=== PATIENT | male | born 1965 | race Caucasian/White ===

== ENCOUNTER 2023-08-14 16:06 | Inpatient (IN) | payer BC, SELFPAY ==
--- NOTE | 2023-08-14 | ECG_ITS ---
Test Reason : TACHYCARDIA Blood Pressure : / mmHG Vent. Rate : 141 BPM Atrial Rate : 344 BPM P-R Int : 000 ms QRS Dur : 088 ms QT Int : 312 ms P-R-T Axes : 000 -05 218 degrees QTc Int : 477 ms Atrial flutter with variable A-V block with premature ventricular or aberrantly conducted complexes ST & T wave abnormality, consider lateral ischemia Abnormal ECG No previous ECGs available Referred By: Generic ED Physician Electronically Signed By:EARLENE BOOKER MD
--- NOTE | ~2023-08-14 | NM_ITS ---
BILIARY TRACT IMAGING STUDY CLINICAL INDICATION: Gallbladder edema, question acalculous cholecystitis. PROCEDURE: Scintillation camera images were obtained over the abdomen for an observation of 60 minutes following the intravenous administration of 5.0 millicuries technetium 99m Mebrofenin. COMPARISON: No previous biliary scan is available for comparison. Abdominal ultrasound and CT of the abdomen and pelvis, both dated 08/14/2023 are available for comparison.. FINDINGS: There is good concentration of activity in the liver by 5 minutes post injection. Biliary activity is well visualized by 10 minutes, and there is good visualization of small bowel activity by 30 minutes. The gallbladder is well visualized by 20 minutes. At the end of the study there is good clearance of activity from the liver which is only faintly visualized in the gallbladder and diffuse small bowel activity are well visualized. NM/NM hepatobiliary wo pharm IMPRESSION: Normal biliary scan. Visualization of the gallbladder is evidence of a patent cystic duct and strong evidence against the diagnosis of acute cholecystitis. The common bile duct is patent. Liver function appears normal.
--- NOTE | ~2023-08-14 | US_ITS ---
EXAMINATION: US ABDOMEN LIMITED CLINICAL INFORMATION: Right upper quadrant pain. COMPARISON: CT abdomen/pelvis earlier today. TECHNIQUE: Real-time imaging of the gallbladder. FINDINGS: No evidence of cholelithiasis. Mild diffuse gallbladder wall thickening with trace amount of pericholecystic free fluid at the fundus. Positive Sargent's sign. Mildly dilated CBD, best visualized on CT from earlier same day. US/US abdomen limited IMPRESSION: 1. Mild diffuse gallbladder wall thickening with trace amount of pericholecystic free fluid and positive Sargent's sign. These findings are concerning for acute acalculus cholecystitis in the appropriate clinical setting. Alternatively, the gallbladder wall thickening may be related with hepatocellular disease such as hepatitis and the pericholecystic free fluid could potentially be secondary to trace amount of ascites, as free fluid is also noted surrounding the liver and in the right paracolic gutter on CT from earlier today. Clinical correlation is recommended. 2. Mildly dilated CBD, best visualized on CT from earlier same day. Recommend correlation with liver/biliary function tests and if indicated for evaluation with MRCP.
--- NOTE | ~2023-08-14 | CT_ITS ---
EXAMINATION: CT ABDOMEN AND PELVIS WITH CONTRAST CLINICAL INFORMATION: Right upper quadrant/epigastric pain. COMPARISON: None available. TECHNIQUE: Multidetector volumetric images were obtained from the superior aspect of the liver through the pubic symphysis following administration 85 mL of Omnipaque 350 intravenous contrast. Sagittal and coronal reformatted images were obtained on the technologist's workstation. Oral contrast: No This CT examination was performed using dose optimization techniques as appropriate, variously including the following: *Automated exposure control *Adjustment of mA and/or kV according to patient size (this includes techniques or standardized protocols for targeted exams where dose is matched to indication/reason for exam; i.e. extremities or head) *Use of iterative reconstruction technique DLP: 1021 mGy-cm FINDINGS: LUNG BASES: Moderate size bilateral pleural effusions. LIVER, GALLBLADDER, AND BILIARY TREE: Subtle heterogeneous enhancement of the liver parenchyma more noticeable in the periphery of the right inferior lobe (3:31). Trace superior perihepatic free fluid. Mild diffuse gallbladder wall thickening with trace pericholecystic fatty haziness best seen on the coronal images, although evaluation is limited due to motion. No evidence of calcified cholelithiasis. Mild indeterminate dilatation of the common bile duct measuring up to 11 mm. No significant intrahepatic biliary ductal dilatation. No calcified choledocholithiasis. PANCREAS: Unremarkable. SPLEEN: Too small to characterize nonaggressive appearing hypodensity in the inferior spleen (3:35). ADRENAL GLANDS: Unremarkable. KIDNEYS AND URETERS: The kidneys are normal in size, shape, and attenuation. A few bilateral too small to characterize cortical hypodensities favoring to represent simple cysts for which no imaging follow-up is recommended. No hydronephrosis, hydroureter, or calculi seen. Asymmetric free fluid along the anterior right pararenal space and right paracolic gutter. BLADDER: Unremarkable. GASTROINTESTINAL TRACT: The stomach and small bowel are nondilated. Cecum at the level of the right upper quadrant, no evidence of volvulus. The appendix is not identified. Mild colonic diverticulosis without significant pericolonic fat stranding or free fluid. No evidence of bowel obstruction. ABDOMINAL WALL: Small fat-containing right-sided inguinal hernia. Mild fat stranding in the umbilical region. LYMPH NODES: No lymphadenopathy. VASCULAR: Atherosclerotic disease. Normal caliber abdominal aorta. Question small recanalized umbilical vein. PELVIC VISCERA: Unremarkable. OSSEOUS STRUCTURES: No acute or aggressive appearing osseous findings. Degenerative changes of the spine. CT/CT abdomen pelvis w IV con IMPRESSION: 1. Gallbladder wall thickening with trace pericholecystic fatty haziness, although evaluation is limited due to motion. No evidence of calcified cholelithiasis. Correlate clinically for acute acalculus cholecystitis, consider further evaluation with right upper quadrant ultrasound as clinically deemed appropriate. 2. Mild indeterminate dilatation of the common bile duct; further evaluation with MRCP if clinically warranted. 3. Subtle heterogeneous attenuation liver parenchyma, nonspecific could be related with hepatic steatosis or hepatitis, recommend correlation with liver function tests. 4. Indeterminate small volume of asymmetric free fluid in the anterior right pararenal space and right paracolic gutter with trace amount of free fluid surrounding the upper liver, possibly related with ascites. Suggestion of recanalized small paraumbilical vein but could be seen with portal hypertension. 5. Moderate bilateral pleural effusions. 6. Mild fat stranding in the umbilical region, correlate with physical examination.
--- NOTE | ~2023-08-14 | XR_ITS ---
EXAMINATION: XR CHEST CLINICAL INFORMATION: Shortness of breath. COMPARISON: None available. TECHNIQUE: AP view of the chest was obtained. FINDINGS: Limited examination secondary to patient body habitus and rotation. Prominent cardiomediastinal silhouette. Diffuse interstitial thickening. No focal consolidation, pleural effusion or pneumothorax. No acute osseous findings. Visualized upper abdomen is within normal limits. XR/XR chest 1V IMPRESSION: Findings suggesting pulmonary edema versus atypical infectious/inflammatory process. Prominent cardiomediastinal silhouette.
[2023-08-14 16:20] VITALS: BP 180/117; PULSE 129; RESP 22; TEMP 36.2; O2SAT 93; BMI 43.0
[2023-08-14 17:07] VITALS: BP 168/106; PULSE 137; RESP 25; O2SAT 95
--- NOTE | 2023-08-14 17:12 | ED.GENADULT ---
HPI - General Adult General Chief complaint: General Medical Stated complaint: sob,abd pain ? contstipation, started to heart med Time Seen by Provider: 08/14/23 16:41 Source: patient and family Mode of arrival: ambulatory History of Present Illness HPI narrative: 58-year-old male with known atrial fibrillation and on Coumadin for coagulation, underwent cardioversion on Wednesday of this week that was unsuccessful and was supposed to start amiodarone but drove from [place] up to [place] and did not start the medication until yesterday and although was supposed to take 3 pills, he only took 2. Patient states that he has begun to feel more short of breath, increased abdominal bloating and has taken 2 doses of laxatives and states his last bowel movement was this morning but patient appears very uncomfortable. He denies chest pain. Patient states that he also did not take his morning Lopressor. 1700: evaluated Related Data Home Medications Medication Instructions Recorded Confirmed amiodarone 400 mg tablet mg PO 08/14/23 atorvastatin 10 mg tablet 10 mg PO DAILY 08/14/23 08/14/23 fluticasone propionate 110 2 puff inhalation BID 08/14/23 08/14/23 mcg/actuation HFA aerosol inhaler metoprolol succinate 50 mg 50 mg PO DAILY 08/14/23 08/14/23 tablet,extended release 24 hr pantoprazole 40 mg tablet,delayed 40 mg PO DAILY 08/14/23 08/14/23 release ramipril 10 mg capsule 10 mg PO DAILY 08/14/23 08/14/23 warfarin 4 mg tablet 4 mg PO 08/14/23 08/14/23 Allergies Allergy/AdvReac Type Severity Reaction Status Date / Time No Known Allergies Allergy Verified 08/14/23 16:27 Review of Systems Review of Systems: Pertinent positives and negatives as stated in HPI [facility] Past Medical History Source: nursing notes reviewed Social History Social History Smoked in Last 30 Days: No Use of substances other than those prescribed or required for medical reasons: No Advance Directives: Yes Advance Directives Information Provided: No Advance Directives on File: No Physical Exam ED Vital Signs: Vital Signs - 24 hr 08/14/23 16:20 08/14/23 17:07 08/14/23 17:20 Temperature 97.1 F Pulse Rate 129 H 137 H Pulse Rate [Automated] 125 H Respiratory Rate 22 H 25 H Blood Pressure 180/117 H 168/106 H Pulse Oximetry 93 95 Oxygen Delivery Method Room Air Room Air 08/14/23 17:48 08/14/23 18:42 08/14/23 21:18 Temperature 97.8 F Pulse Rate 118 H 124 H 98 Pulse Rate [Automated] Respiratory Rate 22 H 25 H 26 H Blood Pressure 146/110 H 131/101 H 127/89 Pulse Oximetry 97 95 95 Oxygen Delivery Method Room Air Room Air Room Air BMI result Body Mass Index 43.0 VITAL SIGNS: Reviewed. GENERAL: Elevated BMI, Well developed, well nourished, in no acute distress. HEAD: Normocephalic/atraumatic EYES: PERRLA, EOMI EARS: Ext canals without abnormality NOSE: Nares patent bilateral OROPHARYNX: no oral lesions noted, posterior pharynx clear NECK: Supple, no adenopathy LUNGS: Normal breath sounds. No adventitious sounds or accessory muscle use. SpO2<93> CARDIOVASCULAR: Regular rate and rhythm without noted murmurs, no JVD or lower extremity edema. ABDOMEN: Soft, non-tender, non-distended with bowel sounds. MUSCULOSKELETAL: No tenderness, deformities, or effusions noted on gross inspection. EXTREMITIES: No cyanosis, clubbing or edema. SKIN: Inspection of the skin reveals no rashes NEUROLOGIC: Alert and oriented x 4. Strength and sensation to light touch were grossly intact x 4. Medications Administered Discontinued Medications Generic Name Dose Route Start Last Admin Trade Name Freq PRN Reason Stop Dose Admin Diltiazem HCl 10 mg 08/14/23 18:54 08/14/23 19:33 Diltiazem Hcl 50 Mg/10 Ml Vial IVPUSH 08/14/23 18:55 10 mg STAT STA Administration Furosemide 60 mg 08/14/23 18:10 08/14/23 18:41 Furosemide 100 Mg/10 Ml Vial IVPUSH 08/14/23 18:11 60 mg ONCE ONE Administration Protocol Iohexol 100 ml 08/14/23 21:07 08/14/23 21:07 Iohexol 350 Mg/Ml 100 Ml Infus..Btl IV 08/14/23 21:08 85 ml ONCE ONE Administration Metoprolol Tartrate 5 mg 08/14/23 17:11 08/14/23 17:19 Metoprolol Tartrate 5 Mg/5 Ml Vial IVPUSH 08/14/23 17:12 5 mg ONCE ONE Administration Metoprolol Tartrate 5 mg 08/14/23 17:37 08/14/23 17:47 Metoprolol Tartrate 5 Mg/5 Ml Vial IVPUSH 08/14/23 17:38 5 mg ONCE ONE Administration Medical Decision Making Medical Decision Making [facility] Narrative: 1700: 58-year-old male who presents with evidence of atrial flutter with RVR, patient was given 5 of Lopressor and will continue to rule out evidence of anemia, electrolyte abnormalities. I reviewed all investigations and hematologic indices demonstrate a leukocytosis with a left shift but patient is noted to be afebrile and suspect this is a stress leukocytosis, there is no anemia or thrombocytopenia. INR is therapeutic at 2.8. Chemistry indices are negative for WING and there are no electrolyte derangements, serial troponins are flat, however there is a noted elevation total bilirubin as well as mild elevation of transaminases. There is no elevation of alkaline phosphatase which argues against choledocholithiasis. BNP is 363 which is consistent with patient's atrial fibrillation with RVR. CT scan demonstrates gallbladder wall thickening with trace pericholecystic haziness, some mild free fluid in the anterior pararenal space. 2220: I suspect infection, antibiotics ordered. I also ordered ultrasound right upper quadrant. 2247: I discussed case with inpatient hospitalist who accepts admission. Differential Diagnosis Differential Diagnoses: The differential diagnosis associated with the presentation includes Please see the discussion above Admission/Observation Consideration of admission/observation: Escalation of care including admission/observation considered Please see the discussion above Consult Healthcare Provider Management of the patient was discussed with: Hospitalist Please see the discussion above Lab Data [facility] Lab Attestation statement: I reviewed the patient's lab results. Please see the discussion above 08/14/23 17:13 08/14/23 17:13 Labs: Lab Results 08/14/23 08/14/23 08/14/23 Range/Units 17:13 19:39 20:30 WBC 11.9 H (4.8-10.8) X10*3/uL RBC 5.47 (4.60-5.80) X10*6/uL Hgb 16.9 (14.0-18.0) g/dl Hct 50.2 (42.0-52.0) % MCV 91.8 (80.0-98.0) fL MCH 30.9 (27.0-33.0) pg MCHC 33.7 (31.0-36.0) g/dl RDW 14.1 (11.0-16.0) % Plt Count 225 (160-400) X10*3/uL MPV 10.6 (9.4-12.4) fL Immature Gran % (Auto) 0.3 (0.0-0.4) % Neut % (Auto) 79.0 H (45-73) % Lymph % (Auto) 10.1 L (20-40) % Bertie % (Auto) 9.1 (2-11) % Eos % (Auto) 1.1 (0-4) % Baso % (Auto) 0.4 (0-2) % Lymph # (Auto) 1.2 (1.2-4.9) X10*3/uL Bertie # (Auto) 1.1 (0.1-1.2) X10*3/uL Eos # (Auto) 0.1 (0.0-0.4) X10*3/uL Baso # (Auto) 0.1 (0.0-0.2) X10*3/uL Abs Immat Gran (auto) 0.04 H (0.00-0.03) X10*3/uL Absolute Neuts (auto) 9.4 H (2.0-8.3) x10*3/uL Absolute Nucleated RBC 0.000 (0.0-0.012) X10*3/uL Nucleated RBC % (auto) 0.0 (0.0-0.2) /100WBC PT 33.7 H (11.1-13.3) SEC INR 2.8 H (0.9-1.1) APTT 39.9 H (26.0-36.4) SEC Sodium 139 (135-145) mmol/L Potassium 4.2 (3.3-5.1) mmol/L Chloride 106 (96-108) mmol/L Carbon Dioxide 23 (22-29) mmol/L Anion Gap 14 (12-20) BUN 14 (9-16) mg/dL Creatinine 0.87 (0.5-1.4) mg/dL Estim Creat Clear Calc 126.8 Estimated GFR > 60 Random Glucose 102 (60-115) mg/dL Calcium 9.3 (8.4-10.2) mg/dL Total Bilirubin 2.1 H (0.0-1.0) mg/dL Direct Bilirubin 0.7 H (0.0-0.5) mg/dL AST 44 H (5-37) U/L ALT 73 H (0-40) U/L Alkaline Phosphatase 65 (39-117) U/L Troponin I High Sens 7.1 (<3.5-35.0) ng/L B-Natriuretic Peptide 363 H (<100) pg/mL Total Protein 7.6 (6.5-8.0) g/dL Albumin 4.4 (3.5-5.0) g/dL Lipase 14 (8-78) U/L Urine Color Yellow Urine Appearance Clear Urine pH 5.5 (5.0-9.0) Ur Specific [place] <= 1.005 (1.005-1.025) Urine Protein Negative (Neg-Trace) mg/dL Urine Glucose (UA) Negative (Negative) mg/dL Urine Ketones Negative (Negative) mg/dL Urine Blood Negative (Negative) Urine Nitrite Negative (Negative) Ur Leukocyte Esterase Negative (Negative) COVID-19 (SANTO) Negative (Negative) COVID-19 Clin Com See Note Influenza Type A (WILMA) (Negative) Influenza Type B (WILMA) (Negative) Influenza A & B Note 08/14/23 Range/Units 20:31 WBC (4.8-10.8) X10*3/uL RBC (4.60-5.80) X10*6/uL Hgb (14.0-18.0) g/dl Hct (42.0-52.0) % MCV (80.0-98.0) fL MCH (27.0-33.0) pg MCHC (31.0-36.0) g/dl RDW (11.0-16.0) % Plt Count (160-400) X10*3/uL MPV (9.4-12.4) fL Immature Gran % (Auto) (0.0-0.4) % Neut % (Auto) (45-73) % Lymph % (Auto) (20-40) % Bertie % (Auto) (2-11) % Eos % (Auto) (0-4) % Baso % (Auto) (0-2) % Lymph # (Auto) (1.2-4.9) X10*3/uL Bertie # (Auto) (0.1-1.2) X10*3/uL Eos # (Auto) (0.0-0.4) X10*3/uL Baso # (Auto) (0.0-0.2) X10*3/uL Abs Immat Gran (auto) (0.00-0.03) X10*3/uL Absolute Neuts (auto) (2.0-8.3) x10*3/uL Absolute Nucleated RBC (0.0-0.012) X10*3/uL Nucleated RBC % (auto) (0.0-0.2) /100WBC PT (11.1-13.3) SEC INR (0.9-1.1) APTT (26.0-36.4) SEC Sodium (135-145) mmol/L Potassium (3.3-5.1) mmol/L Chloride (96-108) mmol/L Carbon Dioxide (22-29) mmol/L Anion Gap (12-20) BUN (9-16) mg/dL Creatinine (0.5-1.4) mg/dL Estim Creat Clear Calc Estimated GFR Random Glucose (60-115) mg/dL Calcium (8.4-10.2) mg/dL Total Bilirubin (0.0-1.0) mg/dL Direct Bilirubin (0.0-0.5) mg/dL AST (5-37) U/L ALT (0-40) U/L Alkaline Phosphatase (39-117) U/L Troponin I High Sens 8.8 (<3.5-35.0) ng/L B-Natriuretic Peptide (<100) pg/mL Total Protein (6.5-8.0) g/dL Albumin (3.5-5.0) g/dL Lipase (8-78) U/L Urine Color Urine Appearance Urine pH (5.0-9.0) Ur Specific [place] (1.005-1.025) Urine Protein (Neg-Trace) mg/dL Urine Glucose (UA) (Negative) mg/dL Urine Ketones (Negative) mg/dL Urine Blood (Negative) Urine Nitrite (Negative) Ur Leukocyte Esterase (Negative) COVID-19 (SANTO) (Negative) COVID-19 Clin Com Influenza Type A (WILMA) Negative (Negative) Influenza Type B (WILMA) Negative (Negative) Influenza A & B Note See Note Independent Interpretation I performed an independent interpretation of an: EKG Interpretation: Atrial flutter with RVR, HR-141, QRS/QTC is within normal limits. Radiology Impression Discussion of test interpretation with radiology: I have reviewed the radiologist's reading. Radiologist Impression: Please see the discussion above Chronic Conditions Patient?s care impacted by: Hypertension and Other Atrial fibrillation on chronic anticoagulation. Critical Care Time Critical Care Time Critical Care Time: Yes Total Critical Care Time: 90 Attestation: I personally attest to this time spent taking care of the patient. Discharge Plan Discharge Clinical Impression: Atrial fibrillation with RVR, CHF exacerbation, Abdominal pain Patient Disposition: Admitted As Inpatient
[2023-08-14] MEDS: Metoprolol Tartrate 5 MG/5 ML VIAL IVPUSH ×2 (17:19→17:47)
[2023-08-14 17:20] VITALS: PULSE 125
[2023-08-14 17:24] LABS: MANUAL DIFF FLAG NO
--- NOTE | 2023-08-14 17:25 | PC.NURSE ---
patient presents with afib, rate 120s -145s. patient states he has not taken his medication due to possible constipation. patient states he has abd pain which is making him sob. patient denies any chest pain or palpitations. patient medicated per DEC IV in the left ac
[2023-08-14 17:26] LABS: Basophils Absolute Auto 0.1 X10*3/uL (0.0-0.2); Basophils Percent Auto 0.4 % (0-2); Eosinophils Absolute Auto 0.1 X10*3/uL (0.0-0.4); Eosinophils Percent Auto 1.1 % (0-4); Hematocrit 50.2 % (42.0-52.0); Hemoglobin 16.9 g/dl (14.0-18.0); Imm Gran Abs Auto 0.04 X10*3/uL (0.00-0.03); Imm Gran Pct Auto 0.3 % (0.0-0.4); Lymphocytes Absolute Auto 1.2 X10*3/uL (1.2-4.9); Lymphocytes Percent Auto 10.1 % (20-40); Mean Corpuscular HGB Conc 33.7 g/dl (31.0-36.0); Mean Corpuscular Hemoglobin 30.9 pg (27.0-33.0); Mean Corpuscular Volume 91.8 fL (80.0-98.0); Mean Platelet Volume 10.6 fL (9.4-12.4); Monocytes Absolute Auto 1.1 X10*3/uL (0.1-1.2); Monocytes Percent Auto 9.1 % (2-11); Neutrophils Absolute Auto 9.4 x10*3/uL (2.0-8.3); Platelet Count 225 X10*3/uL (160-400); Red Blood Count 5.47 X10*6/uL (4.60-5.80); Red Cell Distribution Width 14.1 % (11.0-16.0); White Blood Count 11.9 X10*3/uL (4.8-10.8)
[2023-08-14 17:32] LABS: INTERNATIONAL NORM RATIO 2.8 (0.9-1.1); Prothrombin Time 33.7 SEC (11.1-13.3)
[2023-08-14 17:35] LABS: Partial Thromboplastin Time 39.9 SEC (26.0-36.4)
[2023-08-14 17:40] LABS: Alanine Aminotransferase 73 U/L (0-40); Albumin Level 4.4 g/dL (3.5-5.0); Alkaline Phosphatase 65 U/L (39-117); Anion Gap 14 (12-20); Aspartate Amino Transferase 44 U/L (5-37); Bilirubin Direct 0.7 mg/dL (0.0-0.5); Bilirubin Total 2.1 mg/dL (0.0-1.0); Blood Urea Nitrogen 14 mg/dL (9-16); Calcium 9.3 mg/dL (8.4-10.2); Carbon Dioxide 23 mmol/L (22-29); Chloride 106 mmol/L (96-108); Creatinine Clr Calc Pharmacy 126.8; Estimated Glomerular Filt Rate > 60; Glucose Random 102 mg/dL (60-115); Lipase 14 U/L (8-78); Potassium 4.2 mmol/L (3.3-5.1); Sodium 139 mmol/L (135-145); Total Protein 7.6 g/dL (6.5-8.0)
[2023-08-14 17:46] LABS: B Type Natriuretic Peptide 363 pg/mL (<100)
[2023-08-14 17:48] VITALS: BP 146/110; PULSE 118; RESP 22; O2SAT 97
[2023-08-14 18:12] LABS: Troponin-I High Sensitivity 7.1 ng/L (<3.5-35.0)
[2023-08-14] MEDS: Furosemide 100 MG/10 ML VIAL 60 MG IVPUSH (18:41)
[2023-08-14 18:42] VITALS: BP 131/101; PULSE 124; RESP 25; O2SAT 95
[2023-08-14] MEDS: dilTIAZem HCL 50 MG/10 ML VIAL 10 MG IVPUSH (19:33)
[2023-08-14 19:52] LABS: Appearance Urine Clear; Color Urine Yellow; Glucose Urine UA Negative (Negative); Leukocyte Esterase Urine Negative (Negative); Nitrite Urine Negative (Negative); PH 5.5 (5.0-9.0); Specific Gravity - Urine <= 1.005 (1.005-1.025); Urine Blood Negative (Negative); Urine Ketones Negative (Negative); Urine Protein Negative (Neg-Trace)
--- NOTE | 2023-08-14 20:48 | PC.NURSE ---
pt feeling less chest pressure, now able to lay mostly flat with no SOB. stomach feels less distended. pt continues to urinate into urinal at bedside. output being measured. urine clear, pale yellow.
[2023-08-14 20:57] LABS: IDNOW Serial# BCCEAD1C; Influenza A Negative (Negative); Influenza B2 Negative (Negative)
[2023-08-14 20:57] LABS: COVID-19 Test Negative (Negative); IDNOW Serial# 08D9AD1C
[2023-08-14 21:00] LABS: Troponin-I High Sensitivity 8.8 ng/L (<3.5-35.0)
[2023-08-14] MEDS: iohexoL 350 MG/ML 100 ML INFUS..BTL IV (21:07)
[2023-08-14 21:18] VITALS: BP 127/89; PULSE 98; RESP 26; TEMP 36.6; O2SAT 95
--- NOTE | 2023-08-14 22:10 | PC.NURSE ---
pt laying in bed left lateral position. O2 dropped to 75% on RA. pt reports using CPAP at bedtime. HOB elevated slightly, O2 at 86%. pt wanted to remain in that position to sleep, pt placed on 3L NC, O2 at 93%.
--- NOTE | 2023-08-14 22:47 | PC.NURSE ---
pt off unit with U/S, abx not yet given
--- NOTE | 2023-08-14 22:52 | P.HPHOSP_ITS ---
History of Present Illness Date of Service: 08/14/23 Chief Complaint: Dyspnea ; abdominal swelling This is a 58-year-old male with 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 Patient states he is from [place] and underwent cardioversion on Wednesday. It was unsuccessful and patient was initiated on amiodarone. Patient states he only took 2 pills as it made him constipated. He is visiting his sister in [facility]. Patient does report progressive dyspnea, worse with exertion. Also complains of orthopnea. Does have bilateral lower extremity looks swelling and abdominal wall swelling. He states he does have abdominal discomfort, right-sided, nonradiating. No fever, chills, nausea, vomiting. No palpitations or changes in urinary or bowel habits. In the emergency department, patient with pulmonary edema and BNP was found to be elevated. Also requiring supplemental oxygen and found to be in AFib with RVR. Abdominal imaging with diffuse gallbladder wall thickening, positive Sargent signs and dilated CBD with elevated liver enzymes Review of Systems 2 Constitutional: Constitutional: Reports fatigue and Reports weakness Cardiovascular: Cardiovascular: Reports dyspnea on exertion and Reports orthopnea Respiratory: Respiratory: Reports dyspnea on exertion Gastrointestinal: Gastrointestinal: Reports abdominal pain Genitourinary: Genitourinary: Reports no additional male genitourinary complaints Musculoskeletal: Musculoskeletal: Reports no additional musculoskeletal complaints Neurologic: Reports weakness Endocrine: Endocrine: Reports fatigue [facility] Medical History DVT (deep venous thrombosis) Essential hypertension Atrial fibrillation with RVR Pertinent family history: No family history of early CAD Social History Patient Tobacco Use Status: Never used Tobacco Smoked in Last 30 Days: No Use of substances other than those prescribed or required for medical reasons: No Advance Directives: Yes Advance Directives Information Provided: No Advance Directives on File: No Nutrition Risks: No Nutritional Risk Meds Allergies Allergy/AdvReac Type Severity Reaction Status Date / Time No Known Allergies Allergy Verified 08/14/23 16:27 Home Medications Medication Instructions Recorded Confirmed Last Taken Type amiodarone 400 mg tablet mg PO 08/14/23 08/13/23 History atorvastatin 10 mg tablet 10 mg PO DAILY 08/14/23 08/14/23 08/13/23 History fluticasone propionate 110 2 puff inhalation BID 08/14/23 08/14/23 08/13/23 History mcg/actuation HFA aerosol inhaler metoprolol succinate 50 mg 50 mg PO DAILY 08/14/23 08/14/23 08/13/23 History tablet,extended release 24 hr pantoprazole 40 mg tablet,delayed 40 mg PO DAILY 08/14/23 08/14/23 08/13/23 History release ramipril 10 mg capsule 10 mg PO DAILY 08/14/23 08/14/23 08/13/23 History warfarin 4 mg tablet 4 mg PO 08/14/23 08/14/23 08/13/23 History Physical Exam 2 Vital Signs and Narrative: Vital Signs: Last Vital Signs Temp 97.8 F 08/14/23 21:18 Pulse 98 08/14/23 21:18 Resp 26 H 08/14/23 21:18 BP 127/89 08/14/23 21:18 Pulse Ox 95 08/14/23 21:18 O2 Del Method Room Air 08/14/23 21:18 BMI result Body Mass Index 43.0 Middle-aged male lying in bed in mild distress on supplemental oxygen Neck supple Irregularly irregular, S1-S2 heard Bilateral crackles without wheezing Abdomen soft nontender, no guarding, no rigidity Patient is awake, alert and oriented to self, place, time and person ; no focal motor deficit Psych: Normal mood Bilateral pedal edema Results Labs 08/14/23 17:13 08/14/23 17:13 Labs: Laboratory Results - last 24 hr 08/14/23 08/14/23 08/14/23 17:13 19:39 20:30 MCV 91.8 MCH 30.9 MCHC 33.7 RDW 14.1 Plt Count 225 MPV 10.6 Immature Gran % (Auto) 0.3 Neut % (Auto) 79.0 H Lymph % (Auto) 10.1 L Worth % (Auto) 9.1 Eos % (Auto) 1.1 Baso % (Auto) 0.4 Lymph # (Auto) 1.2 Worth # (Auto) 1.1 Eos # (Auto) 0.1 Baso # (Auto) 0.1 Abs Immat Gran (auto) 0.04 H Absolute Neuts (auto) 9.4 H Absolute Nucleated RBC 0.000 Nucleated RBC % (auto) 0.0 PT 33.7 H INR 2.8 H APTT 39.9 H Anion Gap 14 Estim Creat Clear Calc 126.8 Estimated GFR > 60 Random Glucose 102 Calcium 9.3 Total Bilirubin 2.1 H Direct Bilirubin 0.7 H AST 44 H ALT 73 H Alkaline Phosphatase 65 B-Natriuretic Peptide 363 H Total Protein 7.6 Albumin 4.4 Lipase 14 Urine Color Yellow Urine Appearance Clear Urine pH 5.5 Ur Specific [place] <= 1.005 Urine Protein Negative Urine Glucose (UA) Negative Urine Ketones Negative Urine Blood Negative Urine Nitrite Negative Ur Leukocyte Esterase Negative COVID-19 (SANTO) Negative COVID-19 Clin Com See Note Influenza Type A (WILMA) Influenza Type B (WILMA) Influenza A & B Note 08/14/23 20:31 MCV MCH MCHC RDW Plt Count MPV Immature Gran % (Auto) Neut % (Auto) Lymph % (Auto) [place] % (Auto) Eos % (Auto) Baso % (Auto) Lymph # (Auto) Worth # (Auto) Eos # (Auto) Baso # (Auto) Abs Immat Gran (auto) Absolute Neuts (auto) Absolute Nucleated RBC Nucleated RBC % (auto) PT INR APTT Anion Gap Estim Creat Clear Calc Estimated GFR Random Glucose Calcium Total Bilirubin Direct Bilirubin AST ALT Alkaline Phosphatase B-Natriuretic Peptide Total Protein Albumin Lipase Urine Color Urine Appearance Urine pH Ur Specific [place] Urine Protein Urine Glucose (UA) Urine Ketones Urine Blood Urine Nitrite Ur Leukocyte Esterase COVID-19 (SANTO) COVID-19 Clin Com Influenza Type A (WILMA) Negative Influenza Type B (WILMA) Negative Influenza A & B Note See Note Imaging Radiologist's Impressions: Impressions Chest X-Ray 08/14/23 18:52 IMPRESSION: Findings suggesting pulmonary edema versus atypical infectious/inflammatory process. Prominent cardiomediastinal silhouette. Abdomen/Pelvis CT 08/14/23 21:06 IMPRESSION: 1. Gallbladder wall thickening with trace pericholecystic fatty haziness, although evaluation is limited due to motion. No evidence of calcified cholelithiasis. Correlate clinically for acute acalculus cholecystitis, consider further evaluation with right upper quadrant ultrasound as clinically deemed appropriate. 2. Mild indeterminate dilatation of the common bile duct; further evaluation with MRCP if clinically warranted. 3. Subtle heterogeneous attenuation liver parenchyma, nonspecific could be related with hepatic steatosis or hepatitis, recommend correlation with liver function tests. 4. Indeterminate small volume of asymmetric free fluid in the anterior right pararenal space and right paracolic gutter with trace amount of free fluid surrounding the upper liver, possibly related with ascites. Suggestion of recanalized small paraumbilical vein but could be seen with portal hypertension. 5. Moderate bilateral pleural effusions. 6. Mild fat stranding in the umbilical region, correlate with physical examination. Assessment and Plan (1) Atrial fibrillation with RVR: Status: Acute (2) CHF exacerbation: Status: Acute (3) Elevated liver enzymes: Status: Acute Plan This is a 58-year-old male with 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 #. Acute hypoxemic respiratory failure secondary to compensated congestive heart failure, unspecified EF: Will admit patient with supplemental oxygen. Initiating IV diuresis. Strict I's and O's. Low-salt diet. Consulting Cardiology and obtaining echocardiogram. #. Atrial fibrillation with RVR: Initiated IV diltiazem drip in the ER. On Coumadin. Consulted Cardiology as above. Obtaining TSH #. Elevated liver enzymes: Imaging with diffuse gallbladder wall thickening and positive Sargent sign. ?acute cholecystitis. Consulting general surgery. Also noted mildly dilated CBD, obtaining MRCP. Initiating empiric IV antibiotics #. SOUMYA: Continue CPAP at bedtime #. History of DVT: On Coumadin #. Mixed hyperlipidemia: On statin Med rec pending Cardiac diet DVT prophylaxis: On Coumadin Admit as inpatient and will require two night minimum hospital stay for supplemental oxygen, IV diuresis, IV diltiazem, IV antibiotics (as above), which is not possible in a lesser acute setting. Specialist consult pending Quality Stroke Does the patient have a stroke diagnosis?: No VTE Prior VTE?: No VTE Risk Level:: Medical - moderate - high VTE Device Contraindication: Treatment Not Indicated VTE Drug Contraindication: N/A - Med Ordered
--- NOTE | 2023-08-14 23:12 | PC.NURSE ---
Med Rec completed.
[2023-08-14] MEDS: cefTRIAXone sodium 1 GM in 0.9 % Sodium Chloride 50 ML IV (23:26)
--- NOTE | 2023-08-14 23:41 | PC.NURSE ---
pt refused PO tylenol. pt denies pain and does not have a fever. did not want to take medication.
[2023-08-15] VITALS (10 sets, daily range): BP systolic 127–151; BP diastolic 67–104; PULSE 91–134; RESP 16–25; TEMP 36.1–36.8; O2SAT 94–96; BMI 40.7
[2023-08-15] MEDS: 0.9 % Sodium Chloride Flush 3 ML SYRINGE IVFLUSH ×2 (00:07→21:08)
[2023-08-15] MEDS: Piperacillin Sodium/Tazobactam 4.5 GM in 0.9 % Sodium Chloride 100 ML IV ×4 (00:30→18:11)
[2023-08-15 00:57] LABS: Thyroid Stimulating Hormone 1.38 uIU/mL (0.32-4.0)
[2023-08-15] MEDS: dilTIAZem HCL 125 MG in 0.9 % Sodium Chloride 100 ML 10 MG IVCONT (01:05)
[2023-08-15] MEDS: Acetaminophen 325 MG TABLET 650 MG PO (01:25)
--- NOTE | 2023-08-15 03:13 | PC.NURSE ---
pt resting comfortably in bed, at bedside. pt using home CPAP, 02 ranges from 88-96 HR dropped to 79. ranges from 79-100. MD Berry aware. cardizem drip stopped.
--- NOTE | 2023-08-15 03:41 | PC.NURSE ---
pt c/o leg cramping. pt also concerned that he missed his PM medications. MD Jamal nava
[2023-08-15 06:19] LABS: MANUAL DIFF FLAG NO
[2023-08-15 06:27] LABS: Basophils Absolute Auto 0.1 X10*3/uL (0.0-0.2); Basophils Percent Auto 0.5 % (0-2); Eosinophils Absolute Auto 0.2 X10*3/uL (0.0-0.4); Eosinophils Percent Auto 1.4 % (0-4); Hemoglobin 15.7 g/dl (14.0-18.0); Imm Gran Abs Auto 0.04 X10*3/uL (0.00-0.03); Imm Gran Pct Auto 0.4 % (0.0-0.4); Lymphocytes Absolute Auto 1.6 X10*3/uL (1.2-4.9); Lymphocytes Percent Auto 14.4 % (20-40); Mean Corpuscular HGB Conc 34.1 g/dl (31.0-36.0); Mean Corpuscular Hemoglobin 31.5 pg (27.0-33.0); Mean Corpuscular Volume 92.2 fL (80.0-98.0); Mean Platelet Volume 10.7 fL (9.4-12.4); Monocytes Absolute Auto 1.2 X10*3/uL (0.1-1.2); Monocytes Percent Auto 11.2 % (2-11); Neutrophils Absolute Auto 7.8 x10*3/uL (2.0-8.3); Neutrophils Percent Auto 72.1 % (45-73); Platelet Count 200 X10*3/uL (160-400); Red Blood Count 4.99 X10*6/uL (4.60-5.80); Red Cell Distribution Width 14.1 % (11.0-16.0); White Blood Count 10.8 X10*3/uL (4.8-10.8)
[2023-08-15 06:34] LABS: Anion Gap 11 (12-20); Blood Urea Nitrogen 11 mg/dL (9-16); Calcium 8.7 mg/dL (8.4-10.2); Carbon Dioxide 29 mmol/L (22-29); Chloride 103 mmol/L (96-108); Creatinine Clr Calc Pharmacy 125.4; Estimated Glomerular Filt Rate > 60; Glucose Random 94 mg/dL (60-115); Potassium 3.8 mmol/L (3.3-5.1); Sodium 139 mmol/L (135-145)
--- NOTE | 2023-08-15 07:46 | PC.NURSE ---
ASSUMED CARE OF THIS PT THIS MORNING. MEDICATED PER EMR, ON THIRD DOSE OF IV ABX. REMAINS IN AFIB LOW 110S AT REST, INCREASING TO 130S WITH ANY EXERTION, ALSO BECOMING DYSPNEIC, LS CLEAR THROUGHOUT. DENIES CP AT THIS TIME, ABDOMINAL PRESSURE AND DISCOMFORT HAS IMPROVED. HAS NOT RECEIVED HOME RXS, REVIEWED WITH HIM ONCE AGAIN THERE HAVE BEEN MANY RECENT CHANGES. HOSPITALIST CONTACTED FOR ORDERS. CARDIZEM GTT REMAINS PAUSED AT THIS TIME. PT AWARE OF PLAN FOR CARE.
--- NOTE | 2023-08-15 07:49 | P.CONGS_ITS ---
History of Present Illness Consult details Consult date: 08/15/23 Reason for consult: abdominal pain Narrative: The patient is a 58-year-old gentleman anticoagulated with Coumadin for history of DVT on Coumadin, atrial fibrillation, mixed hyperlipidemia, essential hypertension, SOUMYA on CPAP who is admitted to the hospitalist service and I was asked to evaluate the patient given artie cholecystic fluid in concern for acalculous cholecystitis. The patient reports recent diagnosis of atrial fibrillation and heart failure. He is visiting his sister from [place] and noted that after a 4 L diuresis, his abdominal pain has resolved. At the time of evaluation earlier this morning, the patient notes that he is feeling better and denies any abdominal pain. Review of Systems 2 Review of Systems: Yes all other systems are reviewed and are negative Constitutional: Constitutional: Reports as per [facility] Past Medical History Medical History DVT (deep venous thrombosis) Essential hypertension Atrial fibrillation with RVR Social History Social History Patient Tobacco Use Status: Never used Tobacco Smoked in Last 30 Days: No Use of substances other than those prescribed or required for medical reasons: No Advance Directives: Yes Advance Directives Information Provided: No Advance Directives on File: No Nutrition Risks: No Nutritional Risk Meds Allergies Allergy/AdvReac Type Severity Reaction Status Date / Time No Known Allergies Allergy Verified 08/14/23 16:27 Active Medications: Current Medications Acetaminophen (Acetaminophen 325 Mg Tablet) 650 mg PO Q6H PRN PRN Reason: Pain, Mild (Pain Scale 1-3) Last Admin: 08/15/23 01:25 Dose: 650 mg Furosemide (Furosemide 40 Mg/4 Ml Vial) 40 mg IVPUSH DAILY [facility]; Protocol Diltiazem HCl 125 mg/ Sodium (Chloride) 125 mls @ 0 mls/hr IVCONT .Q0M [facility]; Protocol Last Titration: 08/15/23 03:13 Dose: 0 mg/hr, 0 mls/hr Piperacillin Sod/Tazobactam (Sod 4.5 gm/ Sodium Chloride) 100 mls @ 200 mls/hr IV Q6H [facility] Last Admin: 08/15/23 07:37 Dose: 200 mls/hr Melatonin (Melatonin 3 Mg Tablet) 6 mg PO BEDTIME PRN PRN Reason: Insomnia Ondansetron HCl (Ondansetron Hcl 4 Mg/2 Ml Vial) 4 mg IVPUSH Q8H PRN PRN Reason: Nausea and Vomiting Sodium Chloride (0.9 % Sodium Chloride Flush 3 Ml Syringe) 3 ml IVFLUSH QSHIFT [facility] Last Admin: 08/15/23 00:07 Dose: 3 ml Home Medications Medication Instructions Recorded Confirmed Last Taken Type amiodarone 400 mg tablet 400 mg PO TID 08/14/23 08/15/23 08/13/23 History atorvastatin 10 mg tablet 10 mg PO QPM 08/14/23 08/15/23 08/13/23 History fluticasone propionate 110 2 puff inhalation BID 08/14/23 08/14/23 08/13/23 History mcg/actuation HFA aerosol inhaler metoprolol succinate 50 mg 75 mg PO BEDTIME 08/14/23 08/15/23 08/13/23 History tablet,extended release 24 hr pantoprazole 40 mg tablet,delayed 40 mg PO DAILY 08/14/23 08/14/23 08/13/23 History release ramipril 10 mg capsule 20 mg PO DAILY 08/14/23 08/15/23 08/13/23 History warfarin 4 mg tablet 4 mg PO QPM 08/14/23 08/15/23 Unknown History ascorbic acid (vitamin C) 100 mg 500 mg PO DAILY 08/15/23 08/15/23 Unknown History chewable tablet calcium carbonate 500 mg calcium 500 mg PO DAILY 08/15/23 08/15/23 Unknown History (1,250 mg) chewable tablet (Calcium 500) cholecalciferol (vitamin D3) 50 100 mcg PO DAILY 08/15/23 08/15/23 Unknown History mcg (2,000 unit) capsule (Vitamin D3) coenzyme Q10 100 mg capsule (Co 100 mg PO DAILY 08/15/23 08/15/23 Unknown History Q-10) glucosamine sulf dipot 1 cap PO DAILY 08/15/23 08/15/23 Unknown History chlr,msm,chond 550 mg-C 30 mg-timmy 1 mg capsule (Glucosamine Chondroitin) multivitamin 1 tab PO DAILY 08/15/23 08/15/23 Unknown History Physical Exam 2 Vital Signs: Vital Signs: Last Vital Signs Temp 97.5 F 08/15/23 07:20 Pulse 112 H 11/12/23 07:20 Resp 22 H 08/15/23 07:20 BP 149/95 H 08/15/23 07:20 Pulse Ox 94 08/15/23 07:20 O2 Del Method Room Air 08/15/23 07:20 O2 Flow Rate 3 08/15/23 01:26 BMI result Body Mass Index 43.0 The patient is non-toxic & in good spirits NC/AT, PERRLA, EOMI Mood, affect & judgment all appear appropriate Sclera anicteric conjunctiva pink and moist Oropharynx is clear with no aphthous ulcers, Mallampati class 4, mucous membranes moist Heart is irregular, normal S1-S2 no rubs or murmurs Lungs are clear and equal anteriorly with no audible wheezing, rubs or dullness to percussion Abdomen is obese with no demonstrable hernias. No HSM, rebound, rigidity, guarding, masses or bruits are present. The patient does note that when he was 1st brought into the hospital he had abdominal pain and that is absent now that he has been diuresed. Rectal exam is deferred Skin has good turgor and is free of rashes Extremities free of cyanosis clubbing edema but symmetric hemosiderin deposition in his lower leg is present suggestive of chronic venous insufficiency Results Labs 08/15/23 06:05 08/15/23 06:05 Labs: Abnormal lab results 08/14/23 08/15/23 Range/Units 17:13 06:05 WBC 11.9 H (4.8-10.8) X10*3/uL Neut % (Auto) 79.0 H (45-73) % Lymph % (Auto) 10.1 L 14.4 L (20-40) % [place] % (Auto) 11.2 H (2-11) % Abs Immat Gran (auto) 0.04 H 0.04 H (0.00-0.03) X10*3/uL Absolute Neuts (auto) 9.4 H (2.0-8.3) x10*3/uL PT 33.7 H (11.1-13.3) SEC INR 2.8 H (0.9-1.1) APTT 39.9 H (26.0-36.4) SEC Anion Gap 11 L (12-20) Total Bilirubin 2.1 H (0.0-1.0) mg/dL Direct Bilirubin 0.7 H (0.0-0.5) mg/dL AST 44 H (5-37) U/L ALT 73 H (0-40) U/L B-Natriuretic Peptide 363 H (<100) pg/mL Short CBC 08/14/23 08/15/23 Range/Units 17:13 06:05 WBC 11.9 H 10.8 (4.8-10.8) X10*3/uL Hgb 16.9 15.7 (14.0-18.0) g/dl Hct 50.2 46.0 (42.0-52.0) % Plt Count 225 200 (160-400) X10*3/uL BMP 08/14/23 08/15/23 17:13 06:05 Sodium 139 139 Potassium 4.2 3.8 Chloride 106 103 Carbon Dioxide 23 29 BUN 14 11 Creatinine 0.87 0.88 Calcium 9.3 8.7 D Liver Function 08/14/23 Range/Units 17:13 Total Bilirubin 2.1 H (0.0-1.0) mg/dL Direct Bilirubin 0.7 H (0.0-0.5) mg/dL AST 44 H (5-37) U/L ALT 73 H (0-40) U/L Alkaline Phosphatase 65 (39-117) U/L Albumin 4.4 (3.5-5.0) g/dL Urine 08/14/23 Range/Units 19:39 Urine Color Yellow Urine Appearance Clear Urine pH 5.5 (5.0-9.0) Ur Specific [place] <= 1.005 (1.005-1.025) Urine Protein Negative (Neg-Trace) mg/dL Urine Glucose (UA) Negative (Negative) mg/dL All other labs normal. Assessment and Plan (1) Abnormal abdominal CT scan: Status: Acute (2) Elevated liver enzymes: Status: Acute (3) DVT (deep venous thrombosis): Status: Acute (4) Essential hypertension: Status: Acute (5) Atrial fibrillation with RVR: Status: Acute (6) CHF exacerbation: Status: Acute Plan Agree with current plan and workup. Await MRCP, however any right-sided heart failure can cause hepatic edema that can appear to be artie cholecystic fluid on CT or abdominal ultrasound. I have ordered a HIDA without pharmacy to be done for tomorrow since nonvisualization of the gallbladder would be consistent with acalculous cholecystitis. Would continue NPO for now and will follow. Given the interval improvement, the cut patient has question whether not his diet could be advanced and he could be discharged since he has a flight back to [place]. The safest course of action would be to continue this treatment plan given his comorbidities, but in my experience, acute acalculous cholecystitis does not typically improve with diuresis suggestive of right-sided heart failure and venous congestion of the liver contributing to the abnormal finding and subsequent interval improvement. Will follow Procedures Date of Service Date of Service: 08/15/23
--- NOTE | 2023-08-15 08:52 | PHA.MEDREC ---
Pharmacy Consult ? Medication Reconciliation Pharmacy has completed the medication reconciliation. spoke with patient to confirm medications. He started the amiodarone on wednesday and only took 2 doses, then stopped because he was experiencing side effects. He confirmed that the only inhaler he is on right now is the flovent. He reports that his metoprolol was recently increased to 75mg daily. He also confirmed that he is on 4mg every day of warfarin. He explained that he was prescribed spironolactone but never started the medication because he was feeling dehydrated and did not think it was a good idea.
[2023-08-15] MEDS: Furosemide 40 MG/4 ML VIAL IVPUSH ×2 (09:25→18:11)
[2023-08-15] MEDS: Amiodarone HCL 200 MG TABLET 400 MG PO ×3 (09:25→21:05)
[2023-08-15] MEDS: lisinopriL 40 MG TABLET PO (09:30)
--- NOTE | 2023-08-15 09:55 | HO.PM.IMPN ---
Subjective Subjective Date of Service: 08/15/23 Interval History: sob improving Physical Exam Vital Signs: Vital Signs: Last Vital Signs Temp 97.5 F 08/15/23 07:20 Pulse 112 H 08/15/23 07:20 Resp 22 H 08/15/23 07:20 BP 149/95 H 08/15/23 07:20 Pulse Ox 94 08/15/23 07:20 O2 Del Method Room Air 08/15/23 07:20 O2 Flow Rate 3 08/15/23 01:26 BMI result Body Mass Index 43.0 General: AO X 3, no acute distress Resp: CTA bilateral, no accessory muscles used CVS: S1,S2, irregular GI: soft, non tender, bloated Neuro: motor grossly intact, alert Psych: appropriate affect, appropriate insight Objective Data Active Medications Acetaminophen (Acetaminophen 325 Mg Tablet) 650 mg PO Q6H PRN PRN Reason: Pain, Mild (Pain Scale 1-3) Last Admin: 08/15/23 01:25 Dose: 650 mg Documented By: JENNIFER Amiodarone HCl (Amiodarone Hcl 200 Mg Tablet) 400 mg PO TID [facility] Last Admin: 08/15/23 09:25 Dose: 400 mg Documented By: SRAVANTHI Atorvastatin Calcium (Atorvastatin Calcium 10 Mg Tablet) 10 mg PO BEDTIME [facility] Fluticasone Propionate (Fluticasone Propionate 100 Mcg Blst.W.Dev) 2 puff INHALE RBID [facility] Furosemide (Furosemide 40 Mg/4 Ml Vial) 40 mg IVPUSH DAILY [facility]; Protocol Last Admin: 08/15/23 09:25 Dose: 40 mg Documented By: SRAVANTHI Diltiazem HCl 125 mg/ Sodium (Chloride) 125 mls @ 0 mls/hr IVCONT .Q0M [facility]; Protocol Last Titration: 08/15/23 03:13 Dose: 0 mg/hr, 0 mls/hr Documented By: JENNIFER Piperacillin Sod/Tazobactam (Sod 4.5 gm/ Sodium Chloride) 100 mls @ 200 mls/hr IV Q6H [facility] Last Infusion: 08/15/23 08:34 Dose: Infused Documented By: SRAVANTHI Lisinopril (Lisinopril 40 Mg Tablet) 40 mg PO DAILY [facility] Last Admin: 08/15/23 09:30 Dose: 40 mg Documented By: SRAVANTHI Melatonin (Melatonin 3 Mg Tablet) 6 mg PO BEDTIME PRN PRN Reason: Insomnia Metoprolol Succinate (Metoprolol Succinate Er 50 Mg Tab.Er.24h) 75 mg PO BEDTIME [facility]; Protocol Multivitamins/Vitamin C (Multivitamin Tablet) 1 tab PO DAILY [facility] Omeprazole (Omeprazole 20 Mg Capsule.Dr) 20 mg PO DAILY@0630 [facility] Ondansetron HCl (Ondansetron Hcl 4 Mg/2 Ml Vial) 4 mg IVPUSH Q8H PRN PRN Reason: Nausea and Vomiting Sodium Chloride (0.9 % Sodium Chloride Flush 3 Ml Syringe) 3 ml IVFLUSH QSHIFT [facility] Last Admin: 08/15/23 08:34 Dose: Not Given Documented By: SRAVANTHI Non-Admin Reason: See Note Vitamin D (Cholecalciferol (Vitamin D3) 25 Mcg Tablet) 100 mcg PO DAILY [facility] Warfarin Sodium (Warfarin Sodium 4 Mg Tablet) 4 mg PO DAILY@1800 [facility] Labs 08/15/23 06:05 08/15/23 06:05 Labs: Laboratory Results - last 24 hr 08/14/23 08/14/23 08/14/23 17:13 19:39 20:30 MCV 91.8 MCH 30.9 MCHC 33.7 RDW 14.1 Plt Count 225 MPV 10.6 Immature Gran % (Auto) 0.3 Neut % (Auto) 79.0 H Lymph % (Auto) 10.1 L [place] % (Auto) 9.1 Eos % (Auto) 1.1 Baso % (Auto) 0.4 Lymph # (Auto) 1.2 [place] # (Auto) 1.1 Eos # (Auto) 0.1 Baso # (Auto) 0.1 Abs Immat Gran (auto) 0.04 H Absolute Neuts (auto) 9.4 H Absolute Nucleated RBC 0.000 Nucleated RBC % (auto) 0.0 PT 33.7 H INR 2.8 H APTT 39.9 H Anion Gap 14 Estim Creat Clear Calc 126.8 Estimated GFR > 60 Random Glucose 102 Calcium 9.3 Total Bilirubin 2.1 H Direct Bilirubin 0.7 H AST 44 H ALT 73 H Alkaline Phosphatase 65 B-Natriuretic Peptide 363 H Total Protein 7.6 Albumin 4.4 Lipase 14 TSH 1.38 Urine Color Yellow Urine Appearance Clear Urine pH 5.5 Ur Specific [place] <= 1.005 Urine Protein Negative Urine Glucose (UA) Negative Urine Ketones Negative Urine Blood Negative Urine Nitrite Negative Ur Leukocyte Esterase Negative COVID-19 ([facility]) Negative COVID-19 Clin Com See Note Influenza Type A ([facility]) Influenza Type B ([facility]) Influenza A & B Note 08/14/23 08/15/23 20:31 06:05 MCV 92.2 MCH 31.5 MCHC 34.1 RDW 14.1 Plt Count 200 MPV 10.7 Immature Gran % (Auto) 0.4 Neut % (Auto) 72.1 Lymph % (Auto) 14.4 L [place] % (Auto) 11.2 H Eos % (Auto) 1.4 Baso % (Auto) 0.5 Lymph # (Auto) 1.6 [place] # (Auto) 1.2 Eos # (Auto) 0.2 Baso # (Auto) 0.1 Abs Immat Gran (auto) 0.04 H Absolute Neuts (auto) 7.8 Absolute Nucleated RBC 0.000 Nucleated RBC % (auto) 0.0 PT INR APTT Anion Gap 11 L Estim Creat Clear Calc 125.4 Estimated GFR > 60 Random Glucose 94 Calcium 8.7 D Total Bilirubin Direct Bilirubin AST ALT Alkaline Phosphatase B-Natriuretic Peptide Total Protein Albumin Lipase TSH Urine Color Urine Appearance Urine pH Ur Specific [place] Urine Protein Urine Glucose (UA) Urine Ketones Urine Blood Urine Nitrite Ur Leukocyte Esterase COVID-19 ([facility]) COVID-19 Clin Com Influenza Type A ([facility]) Negative Influenza Type B ([facility]) Negative Influenza A & B Note See Note Assessment and Plan (1) Atrial fibrillation with RVR: Status: Acute Plan 58M PMH DVT, persistent afib, hld, htn, soumya, obesity, presented with sob Acute hypoxic respiratory failure secondary acute unspecified CHF IV Lasix, now on room air, follow-up Cardiology and echo Persistent atrial fibrillation with rapid ventricular response Amiodarone, metoprolol, Coumadin Gallbladder edema with elevated liver enzymes Acute cholecystitis versus hepatic/biliary congestion from CHF Empiric IV antibiotics, follow-up cultures, HIDA, MRCP Monitor with IV diuresis SOUMYA CPAP Morbid obesity Weight loss recommended History of DVT On Coumadin Hyperlipidemia Statin Full code Reason for continued hospitalization: IV diuresis and better rate control Quality Stroke Does the patient have a stroke diagnosis?: No VTE Prior VTE?: No VTE Risk Level:: Medical - moderate - high VTE Device Contraindication: Treatment Not Indicated VTE Drug Contraindication: N/A - Med Ordered
[2023-08-15 10:23] LABS: INTERNATIONAL NORM RATIO 2.6 (0.9-1.1); Prothrombin Time 32.1 SEC (11.1-13.3)
--- NOTE | 2023-08-15 10:27 | HE.PHANOTE ---
RE: warfarin Nursing called pharmacy to ask that timing of warfarin get changed to morning per patient's request
[2023-08-15] MEDS: Warfarin Sodium 4 MG TABLET PO (10:41)
--- NOTE | 2023-08-15 13:50 | PM.CNCAR ---
History of Present Illness History of Present Illness Date of Service: 08/15/23 Requesting physician: Milton Bob Consult reason: atrial fibrillation and congestive heart failure Chief complaint: abdominal pain Narrative: I was consulted to see Cash in cardiology consultation today for congestive heart failure predominantly right-sided heart failure. Patient is a 58-year-old male traveling from [place] to visit his sister in [place]. About few weeks ago he saw his primary care physician as he was having abdominal bloating of unexplained reason. Also says with the bloating when he would bend over re get short of breath. He does have chronic exertional shortness of breath this is not got significantly worse. His main symptoms have been leg swelling and abdominal bloating may need a bloating which is new. His longstanding history of bilateral DVTs with venous insufficiency and is on chronic warfarin therapy for the same. When he saw his primary care physician did a BNP which was elevated in the 300 range and he was then advised to see his production line solderer. He sees a production line solderer for last 10 years because of palpitations was diagnosed with PVCs in the past. Never diagnosed with atrial fibrillation the past. When he saw his production line solderer EKG revealed atrial fibrillation. Did not try to rate control with metoprolol and being that he was on chronic anticoagulation with warfarin with therapeutic INR is advise synchronized cardioversion. He has had echocardiogram in the past and is been told that he has cardiac chamber enlargement, he does not know the exact details. He has prior history of hypertension as well as obstructive sleep apnea on CPAP therapy. He has had obesity for quite some time. No prior history of congestive heart failure, diabetes, stroke. They attempted a synchronized cardioversion last Wednesday in [place], however this failed and he was advised to start amiodarone therapy. He was started to load with 400 mg t.i.d. although he then developed continued symptoms of bloating and shortness of breath. No clear orthopnea. He decided travel any with did not take his amiodarone because he thought he was given his constipation. He was also prescribed diuretic but he thought he was dehydrated did not take his diuretic regimen. He came to the emergency room because of continues bloating and pressure in his belly. Subsequently findings question suggestive of cholecystitis with pericholecystic fluid as well as perihepatic fluid. There is abnormal wall edema as well as bilateral leg edema. There was suspicion for cholecystitis but then he was given IV Lasix and after taking the 1 L out he felt sudden relief in his abdominal pressure. Still has mild pressure. Overnight has negative balance of about 6 L. he is feeling better. However continue some mild pressure in his abdominal wall. Remains in atrial fibrillation with difficult control rate. Review of Systems Constitutional: Constitutional: Reports no additional constitutional complaints Eyes: Eyes: Reports no additional eye complaints Cardiovascular: Cardiovascular: Reports Abdominal Distension, Denies chest pain, Reports leg edema, Denies lightheadedness, Denies Loss of Consciousness, Reports palpitations and Reports dyspnea on exertion Respiratory: Respiratory: Reports no additional respiratory complaints and Reports dyspnea on exertion Gastrointestinal: Gastrointestinal: Reports bloating Genitourinary: Genitourinary: Reports no additional male genitourinary complaints Musculoskeletal: Musculoskeletal: Reports no additional musculoskeletal complaints Integumentary/Breasts: Skin/Breast: Reports system reviewed and no additional complaints, except as docu Neurologic: Reports system reviewed and no additional complaints, except as documented Psychiatric: Psychiatric: Reports no additional psychiatric complaints Endocrine: Endocrine: Reports no additional endocrine complaints and Reports palpitations PMFSH Past Medical History Medical History DVT (deep venous thrombosis) Essential hypertension Atrial fibrillation with RVR Social History Social History Patient Tobacco Use Status: Never used Tobacco Smoked in Last 30 Days: No Use of substances other than those prescribed or required for medical reasons: No Advance Directives: Yes Advance Directives Information Provided: No Advance Directives on File: No Nutrition Risks: No Nutritional Risk Meds Allergies Allergy/AdvReac Type Severity Reaction Status Date / Time No Known Allergies Allergy Verified 08/14/23 16:27 Active Medications: Current Medications Acetaminophen (Acetaminophen 325 Mg Tablet) 650 mg PO Q6H PRN PRN Reason: Pain, Mild (Pain Scale 1-3) Last Admin: 08/15/23 01:25 Dose: 650 mg Amiodarone HCl (Amiodarone Hcl 200 Mg Tablet) 400 mg PO TID [facility], [facility] Last Admin: 08/15/23 09:25 Dose: 400 mg Atorvastatin Calcium (Atorvastatin Calcium 10 Mg Tablet) 10 mg PO BEDTIME LIA Digoxin (Digoxin 0.5 Mg/2 Ml Ampul) 0.25 mg IVPUSH Q6H [facility], [facility]–1983 Stop: 08/15/23 19:46 Empagliflozin (Empagliflozin 25 Mg Tablet) 25 mg PO DAILY [facility], [facility]1983 Fluticasone Propionate (Fluticasone Propionate 100 Mcg Blst.W.Dev) 2 puff INHALE RBID FOR[facility], [facility]–1983 Furosemide (Furosemide 40 Mg/4 Ml Vial) 40 mg IVPUSH DAILY [facility], [facility]; Protocol Last Admin: 08/15/23 09:25 Dose: 40 mg Diltiazem HCl 125 mg/ Sodium (Chloride) 125 mls @ 0 mls/hr IVCONT .Q0M [facility], [facility]–1983; Protocol Last Titration: 08/15/23 03:13 Dose: 0 mg/hr, 0 mls/hr Piperacillin Sod/Tazobactam (Sod 4.5 gm/ Sodium Chloride) 100 mls @ 200 mls/hr IV Q6H [facility], [facility] Last Infusion: 08/15/23 12:22 Dose: Infused Lisinopril (Lisinopril 40 Mg Tablet) 40 mg PO DAILY [facility] Last Admin: 08/15/23 09:30 Dose: 40 mg Melatonin (Melatonin 3 Mg Tablet) 6 mg PO BEDTIME PRN PRN Reason: Insomnia Metoprolol Succinate (Metoprolol Succinate Er 50 Mg Tab.Er.24h) 75 mg PO BEDTIME [facility], [facility]; Protocol Multivitamins/Vitamin C (Multivitamin Tablet) 1 tab PO DAILY [facility] Omeprazole (Omeprazole 20 Mg Capsule.Dr) 20 mg PO DAILY@0630 [facility]1983 Ondansetron HCl (Ondansetron Hcl 4 Mg/2 Ml Vial) 4 mg IVPUSH Q8H PRN PRN Reason: Nausea and Vomiting Sodium Chloride (0.9 % Sodium Chloride Flush 3 Ml Syringe) 3 ml IVFLUSH QSHIFT [facility] Last Admin: 08/15/23 08:34 Dose: Not Given Vitamin D (Cholecalciferol (Vitamin D3) 25 Mcg Tablet) 100 mcg PO DAILY [facility] Warfarin Sodium (Warfarin Sodium 4 Mg Tablet) 4 mg PO DAILY [facility] Last Admin: 08/15/23 10:41 Dose: 4 mg Home Medications Medication Instructions Recorded Confirmed Last Taken Type amiodarone 400 mg tablet 400 mg PO TID 08/14/23 08/15/23 08/13/23 History atorvastatin 10 mg tablet 10 mg PO QPM 08/14/23 08/15/23 08/13/23 History fluticasone propionate 110 2 puff inhalation BID 08/14/23 08/14/23 08/13/23 History mcg/actuation HFA aerosol inhaler metoprolol succinate 50 mg 75 mg PO BEDTIME 08/14/23 08/15/23 08/13/23 History tablet,extended release 24 hr pantoprazole 40 mg tablet,delayed 40 mg PO DAILY 08/14/23 08/14/23 08/13/23 History release ramipril 10 mg capsule 20 mg PO DAILY 08/14/23 08/15/23 08/13/23 History warfarin 4 mg tablet 4 mg PO QPM 08/14/23 08/15/23 Unknown History ascorbic acid (vitamin C) 100 mg 500 mg PO DAILY 08/15/23 08/15/23 Unknown History chewable tablet calcium carbonate 500 mg calcium 500 mg PO DAILY 08/15/23 08/15/23 Unknown History (1,250 mg) chewable tablet (Calcium 500) cholecalciferol (vitamin D3) 50 100 mcg PO DAILY 08/15/23 08/15/23 Unknown History mcg (2,000 unit) capsule (Vitamin D3) coenzyme Q10 100 mg capsule (Co 100 mg PO DAILY 08/15/23 08/15/23 Unknown History Q-10) glucosamine sulf dipot 1 cap PO DAILY 08/15/23 08/15/23 Unknown History chlr,msm,chond 550 mg-C 30 mg-timmy 1 mg capsule (Glucosamine Chondroitin) multivitamin 1 tab PO DAILY 08/15/23 08/15/23 Unknown History Physical Exam Vital Signs: Vital Signs: Last Vital Signs Temp 97.5 F 08/15/23 07:20 Pulse 111 H 08/15/23 11:09 Resp 16 08/15/23 11:09 BP 127/67 08/15/23 11:09 Pulse Ox 96 08/15/23 11:09 O2 Del Method Room Air 08/15/23 11:09 O2 Flow Rate 3 08/15/23 01:26 BMI result Body Mass Index 43.0 Const: General: cooperative, comfortable, no acute distress, alert and awake Nutritional Appearance: obese morbidly obese Orientation/consciousness: patient oriented x3 Limitations: no limitations HEENT: Head: Yes normocephalic and Yes atraumatic Neck: Neck: Yes trachea midline, Yes supple and Yes JVD Resp: Effort & Inspection: normal respiratory effort Auscultation: clear to auscultation bilaterally Cardio: Rate: tachycardic Rhythm: abnormal rhythm irregularly irregular Heart sounds: S1 normal heart sound present, S2 normal heart sound present, no click, no gallops, no murmurs and no rubs GI: Inspection: Yes Abdominal wall edema, Yes distended and Yes obesity Auscultation: normal bowel sounds Skin: General skin exam: no rashes or lesions noted Neuro: General: patient oriented x3 and no focal motor deficits Extrem: General: No clubbing, No cyanosis, Yes edema and Yes venous stasis dermatitis Objective Labs and Meds 08/15/23 06:05 08/15/23 06:05 Lab results: Laboratory Results - last 24 hr 08/14/23 08/14/23 08/14/23 17:13 19:39 20:30 WBC 11.9 H RBC 5.47 Hgb 16.9 Hct 50.2 MCV 91.8 MCH 30.9 MCHC 33.7 RDW 14.1 Plt Count 225 MPV 10.6 Immature Gran % (Auto) 0.3 Neut % (Auto) 79.0 H Lymph % (Auto) 10.1 L Trigg % (Auto) 9.1 Eos % (Auto) 1.1 Baso % (Auto) 0.4 Lymph # (Auto) 1.2 Trigg # (Auto) 1.1 Eos # (Auto) 0.1 Baso # (Auto) 0.1 Abs Immat Gran (auto) 0.04 H Absolute Neuts (auto) 9.4 H Absolute Nucleated RBC 0.000 Nucleated RBC % (auto) 0.0 PT 33.7 H INR 2.8 H APTT 39.9 H Sodium 139 Potassium 4.2 Chloride 106 Carbon Dioxide 23 Anion Gap 14 BUN 14 Creatinine 0.87 Estim Creat Clear Calc 126.8 Estimated GFR > 60 Random Glucose 102 Calcium 9.3 Total Bilirubin 2.1 H Direct Bilirubin 0.7 H AST 44 H ALT 73 H Alkaline Phosphatase 65 Troponin I High Sens 7.1 B-Natriuretic Peptide 363 H Total Protein 7.6 Albumin 4.4 Lipase 14 TSH 1.38 Urine Color Yellow Urine Appearance Clear Urine pH 5.5 Ur Specific [place] <= 1.005 Urine Protein Negative Urine Glucose (UA) Negative Urine Ketones Negative Urine Blood Negative Urine Nitrite Negative Ur Leukocyte Esterase Negative COVID-19 (SANTO) Negative COVID-19 Clin Com See Note Influenza Type A (WILMA) Influenza Type B (WILMA) Influenza A & B Note 08/14/23 08/15/23 08/15/23 20:31 06:05 09:59 WBC 10.8 RBC 4.99 Hgb 15.7 Hct 46.0 MCV 92.2 MCH 31.5 MCHC 34.1 RDW 14.1 Plt Count 200 MPV 10.7 Immature Gran % (Auto) 0.4 Neut % (Auto) 72.1 Lymph % (Auto) 14.4 L Trigg % (Auto) 11.2 H Eos % (Auto) 1.4 Baso % (Auto) 0.5 Lymph # (Auto) 1.6 Trigg # (Auto) 1.2 Eos # (Auto) 0.2 Baso # (Auto) 0.1 Abs Immat Gran (auto) 0.04 H Absolute Neuts (auto) 7.8 Absolute Nucleated RBC 0.000 Nucleated RBC % (auto) 0.0 PT 32.1 H INR 2.6 H APTT Sodium 139 Potassium 3.8 Chloride 103 Carbon Dioxide 29 Anion Gap 11 L BUN 11 Creatinine 0.88 Estim Creat Clear Calc 125.4 Estimated GFR > 60 Random Glucose 94 Calcium 8.7 D Total Bilirubin Direct Bilirubin AST ALT Alkaline Phosphatase Troponin I High Sens 8.8 B-Natriuretic Peptide Total Protein Albumin Lipase TSH Urine Color Urine Appearance Urine pH Ur Specific [place] Urine Protein Urine Glucose (UA) Urine Ketones Urine Blood Urine Nitrite Ur Leukocyte Esterase COVID-19 (SANTO) COVID-19 Clin Com Influenza Type A (WILMA) Negative Influenza Type B (WILMA) Negative Influenza A & B Note See Note EKG shows atrial fibrillation rapid ventricular response with repolarization abnormality Imaging Radiologist's impression: Impressions Chest X-Ray 08/14/23 18:52 IMPRESSION: Findings suggesting pulmonary edema versus atypical infectious/inflammatory process. Prominent cardiomediastinal silhouette. Abdomen/Pelvis CT 08/14/23 21:06 IMPRESSION: 1. Gallbladder wall thickening with trace pericholecystic fatty haziness, although evaluation is limited due to motion. No evidence of calcified cholelithiasis. Correlate clinically for acute acalculus cholecystitis, consider further evaluation with right upper quadrant ultrasound as clinically deemed appropriate. 2. Mild indeterminate dilatation of the common bile duct; further evaluation with MRCP if clinically warranted. 3. Subtle heterogeneous attenuation liver parenchyma, nonspecific could be related with hepatic steatosis or hepatitis, recommend correlation with liver function tests. 4. Indeterminate small volume of asymmetric free fluid in the anterior right pararenal space and right paracolic gutter with trace amount of free fluid surrounding the upper liver, possibly related with ascites. Suggestion of recanalized small paraumbilical vein but could be seen with portal hypertension. 5. Moderate bilateral pleural effusions. 6. Mild fat stranding in the umbilical region, correlate with physical examination. Abdomen Ultrasound 08/14/23 22:55 IMPRESSION: 1. Mild diffuse gallbladder wall thickening with trace amount of pericholecystic free fluid and positive Sargent's sign. These findings are concerning for acute acalculus cholecystitis in the appropriate clinical setting. Alternatively, the gallbladder wall thickening may be related with hepatocellular disease such as hepatitis and the pericholecystic free fluid could potentially be secondary to trace amount of ascites, as free fluid is also noted surrounding the liver and in the right paracolic gutter on CT from earlier today. Clinical correlation is recommended. 2. Mildly dilated CBD, best visualized on CT from earlier same day. Recommend correlation with liver/biliary function tests and if indicated for evaluation with MRCP. Assessment and Plan (1) CHF exacerbation: Status: Acute CHF exacerbation most predominantly right heart failure causing abdominal distension. Has improved with diuresis. Continue IV diuresis with Lasix. Strict intake and output chart needs to be pursued. Continue to monitor renal function as well as electrolytes and replace as need be. Start Jardiance 10 mg to his regimen. Follow aggressive rate control for now and will eventually require rhythm control approach to treat his CHF syndrome. Continue CPAP therapy. Echocardiogram tomorrow to assess LV systolic and diastolic function right-sided filling pressures as well as RV function. (2) Atrial fibrillation with RVR: Status: Acute Resistant but recent onset persistent atrial fibrillation with heart failure syndrome. I think he will benefit in the long run and agree with his production line solderer about rhythm control approach. Although he failed simple cardioversion was started on amiodarone which she has been started recently. Continue amiodarone as well as metoprolol for rate control. Also IV digoxin for rate control. Echocardiogram tomorrow to assess LV function. If LV function shows significant LV systolic dysfunction and/or difficult control rate may require repeat cardioversion. Currently on warfarin therapy for anticoagulation. If INR remains therapeutic and in the past it has could pursue cardioversion in him. Will follow with you Procedures Date of Service Date of Service: 08/15/23
[2023-08-15] MEDS: Digoxin 0.5 MG/2 ML AMPUL 0.25 MG IVPUSH ×2 (14:11→21:04)
[2023-08-15] MEDS: Atorvastatin Calcium 10 MG TABLET PO (21:05)
[2023-08-15] MEDS: Metoprolol Succinate ER 50 MG TAB.ER.24H 75 MG PO (21:05)
[2023-08-15] MEDS: Fluticasone Propionate 100 MCG BLST.W.DEV 2 PUFF INHALE (21:26)
[2023-08-16] MEDS: Piperacillin Sodium/Tazobactam 4.5 GM in 0.9 % Sodium Chloride 100 ML IV ×2 (00:37→05:59)
--- NOTE | 2023-08-16 04:25 | PC.NURSE ---
Around midnight, I entered room to discontinue IV ABX, patient sitting at side of bed rubbing knees and reporting chills and mild anxiety. Vital signs taken normal for patient, afebrile. Palpated abdomen with no acute change. CPAP machine found to be empty of water - fixed by RT. Pt verbalizes relief of chills after putting on sweatshirt and lay back in bed. Call neely in reach.
[2023-08-16] MEDS: Omeprazole 20 MG CAPSULE.DR PO (06:00)
[2023-08-16 06:31] LABS: Hematocrit 46.8 % (42.0-52.0); Hemoglobin 15.8 g/dl (14.0-18.0); Mean Corpuscular HGB Conc 33.8 g/dl (31.0-36.0); Mean Corpuscular Volume 91.8 fL (80.0-98.0); Mean Platelet Volume 10.6 fL (9.4-12.4); Platelet Count 208 X10*3/uL (160-400); Red Cell Distribution Width 13.9 % (11.0-16.0); White Blood Count 14.3 X10*3/uL (4.8-10.8)
[2023-08-16 06:38] LABS: INTERNATIONAL NORM RATIO 3.1 (0.9-1.1); Prothrombin Time 37.5 SEC (11.1-13.3)
[2023-08-16 06:40] LABS: Alanine Aminotransferase 46 U/L (0-40); Albumin Level 3.9 g/dL (3.5-5.0); Alkaline Phosphatase 53 U/L (39-117); Anion Gap 13 (12-20); Aspartate Amino Transferase 26 U/L (5-37); Bilirubin Direct 0.7 mg/dL (0.0-0.5); Bilirubin Total 2.8 mg/dL (0.0-1.0); Blood Urea Nitrogen 12 mg/dL (9-16); Calcium 8.8 mg/dL (8.4-10.2); Carbon Dioxide 29 mmol/L (22-29); Chloride 100 mmol/L (96-108); Creatinine Clr Calc Pharmacy 96.5; Estimated Glomerular Filt Rate > 60; Glucose Fasting 88 mg/dL (60-99); Potassium 3.9 mmol/L (3.3-5.1); Sodium 138 mmol/L (135-145); Total Protein 6.9 g/dL (6.5-8.0)
--- NOTE | 2023-08-16 07:00 | CA_ITS ---
Transthoracic Echocardiogram Patient (Last, First, Middle): Cash Drew, Gender: Male Date of : 1965 Age: 58 Procedure Date: 08/16/2023 Procedure Type: Transthoracic Echocardiogram Location[place] [facility] [place] Height: 177.8 cm Weight: 128.37 kg BSA: 2.42 m2 Heart Rate: 104 bpm BP: 135 / [address] Researcher: SB Referring MD: Elias Berry MD Symptoms: afib with rvr Study Quality: Adequate w contrast ECG Rhythm: Atrial Fibrillation Conclusions: - The left ventricular systolic function is severely decreased. The visually estimated ejection fraction is between 25-30%. - No obvious valvular pathology seen on this study. Findings Procedure Information Contrast agent, definity, is being given per protocol without apparent complications. The quality of the study was technically difficult. The study quality is limited by patients body habitus. Left Ventricle Mildly increased left ventricular cavity size. There is normal left ventricular wall thickness. The left ventricular systolic function is severely decreased. The visually estimated ejection fraction is between 25 30%. Diastolic function is indeterminate on the basis of available data. Right Ventricle Normal right ventricular cavity size. There is mildly decreased right ventricular systolic function. Atria Mild biatrial enlargement. Aortic Valve There is a normal trileaflet aortic valve. There is no aortic valve stenosis. There is no aortic valve regurgitation. Mitral Valve The mitral valve appears normal. There is trace mitral valve regurgitation. There is no mitral valve stenosis. Pulmonic Valve The pulmonic valve is likely normal. Tricuspid Valve Normal tricuspid valve structure. There is trace tricuspid valve regurgitation. There is no evidence of pulmonary hypertension. Great Vessels The asc aorta is normal in size. Venous The inferior vena cava is normal in size and collapses greater than 50% with inspiration. Pericardium/Pleural There is no evidence of pericardial effusion. Prior Study Comparison No prior study available for comparison. Recommendations, Care & Conclusions No obvious valvular pathology seen on this study. Measurements 2D Linear Measurements IVSd: 1.00 0.6-0.9/0.6-1.0 cm LVIDd: 6.39 3.9-5.3/4.2-5.9 cm LVIDd Index: 2.64 2.4-3.2/2.2-3.1 cm/m2 LVIDs: 5.38 2.0-3.6 cm LVPWd: 0.87 0.7-1.1 cm LA Diam: 5.10 2.7-3.8/3.0-4.0 cm LAIDs Index: 2.11 1.5-2.3 cm/m2 LV Mass: 314.54 67-162/88-224 g LV Mass Index: 129.97 43-95/49-115 g/m2 LVOT Diam: 2.40 3.0+(-)1.3 cm 2D Systolic Function EF 4C: 31.80 >55% EF 2C: 33.20 >55% EF BiP: 31.10 >55% Mitral Valve MV Pk E: 0.75 E'Medial: 6.23 E/E' Med: 12.00 Aortic Valve AoV Pk Kishore: 1.03 AoV Pk Grad: 4.00 LILIAN: 3.52 LVOT LVOT Pk Kishore: 0.80 LVOT Mn Kishore: 0.63 LVOT VTI: 0.16 LVOT Pk Grad: 3.00 LVOT Mn Grad: 2.00 LVOT Diam: 2.40 LVOT Area: 4.52 Diastolic Function MV Pk E: 0.75 E'Medial: 6.23 E/E' Med: 12.00 Right Ventricle TAPSE (mm): 18.00 TVS' Kishore: 17.00 Tricuspid Valve TR Pk Kishore: 2.59 TR Pk Grad: 27.00 RA Press: 3.00 RVSP: 30.00 Great Vessels Aorta Sinus of Valsalva: 3.70 2.0-3.5 cm Ao Asc: 3.30 2.1-3.4 cm Pulmonary Valve PV Pk Kishore: 0.75 Peak PV Grad: 2.00 Updated in Other Vendor System with Status of Final Bebeto Toussaint MD electronically signed on 08/16/2023 11:32:36 AM with status of Final
--- NOTE | 2023-08-16 07:20 | PM.PNGS ---
Subjective Subjective Date of Service: 08/16/23 Patient reports: no new complaints and feels better Interval history: The patient notes some central epigastric pressure/discomfort but denies any right upper quadrant pain. He continues to endorse that the right upper quadrant pain resolved immediately after diuresis. He denies any palpitations, chest pain, difficulty breathing or shortness of breath. We discussed the upcoming HIDA scan given the concern for acalculous cholecystitis as well as the possible need for an MRCP in the patient is willing to cooperate with the studies but does note a preference to be discharged back to [place] since he has family and physicians are located there. Physical Exam Vital Signs: Vital Signs: Last Vital Signs Temp 97.9 F 08/15/23 22:52 Pulse 91 08/15/23 22:52 Resp 20 08/15/23 22:52 BP 135/89 08/15/23 22:52 Pulse Ox 96 08/15/23 22:52 O2 Del Method Room Air 08/15/23 22:52 O2 Flow Rate 3 08/15/23 01:26 BMI result Body Mass Index 40.7 On exam, the patient is comfortable, speaking in full sentences with no obvious respiratory difficulty or shortness of breath He is having no respiratory difficulty Abdomen is morbidly obese and soft there is no right upper quadrant tenderness, guarding or peritoneal sign. Patient reports some vague epigastric/ventral discomfort on deep palpation. He is still free of peritoneal sign, guarding or rigidity. Objective Data Active Medications Acetaminophen (Acetaminophen 325 Mg Tablet) 650 mg PO Q6H PRN PRN Reason: Pain, Mild (Pain Scale 1-3) Last Admin: 08/15/23 01:25 Dose: 650 mg Documented By: JENNIFER Amiodarone HCl (Amiodarone Hcl 200 Mg Tablet) 400 mg PO TID [facility] Last Admin: 08/15/23 21:05 Dose: 400 mg Documented By: CARY Atorvastatin Calcium (Atorvastatin Calcium 10 Mg Tablet) 10 mg PO BEDTIME [facility] Last Admin: 08/15/23 21:05 Dose: 10 mg Documented By: CARY Empagliflozin (Empagliflozin 25 Mg Tablet) 25 mg PO DAILY [facility] Fluticasone Propionate (Fluticasone Propionate 100 Mcg Blst.W.Dev) 2 puff INHALE RBID [facility] Last Admin: 08/15/23 21:26 Dose: 2 puff Documented By: CARY Furosemide (Furosemide 40 Mg/4 Ml Vial) 40 mg IVPUSH BID@0900,1800 [facility]; Protocol Last Admin: 08/15/23 18:11 Dose: 40 mg Documented By: EMMANUEL Diltiazem HCl 125 mg/ Sodium (Chloride) 125 mls @ 0 mls/hr IVCONT .Q0M [facility]; Protocol Last Titration: 08/15/23 03:13 Dose: 0 mg/hr, 0 mls/hr Documented By: JENNIFER Piperacillin Sod/Tazobactam (Sod 4.5 gm/ Sodium Chloride) 100 mls @ 200 mls/hr IV Q6H [facility] Last Infusion: 08/16/23 06:30 Dose: Infused Documented By: CARY Lisinopril (Lisinopril 40 Mg Tablet) 40 mg PO DAILY [facility] Last Admin: 08/15/23 09:30 Dose: 40 mg Documented By: SRAVANTHI Melatonin (Melatonin 3 Mg Tablet) 6 mg PO BEDTIME PRN PRN Reason: Insomnia Metoprolol Succinate (Metoprolol Succinate Er 50 Mg Tab.Er.24h) 75 mg PO BEDTIME [facility]; Protocol Last Admin: 08/15/23 21:05 Dose: 75 mg Documented By: CARY Multivitamins/Vitamin C (Multivitamin Tablet) 1 tab PO DAILY [facility] Omeprazole (Omeprazole 20 Mg Capsule.Dr) 20 mg PO DAILY@0630 [facility] Last Admin: 08/16/23 06:00 Dose: 20 mg Documented By: CARY Ondansetron HCl (Ondansetron Hcl 4 Mg/2 Ml Vial) 4 mg IVPUSH Q8H PRN PRN Reason: Nausea and Vomiting Sodium Chloride (0.9 % Sodium Chloride Flush 3 Ml Syringe) 3 ml IVFLUSH QSHIFT [facility] Last Admin: 08/15/23 21:08 Dose: 3 ml Documented By: CARY Vitamin D (Cholecalciferol (Vitamin D3) 25 Mcg Tablet) 100 mcg PO DAILY [facility] Warfarin Sodium (Warfarin Sodium 4 Mg Tablet) 4 mg PO DAILY [facility] Last Admin: 08/15/23 10:41 Dose: 4 mg Documented By: SRAVANTHI Labs 08/16/23 06:09 08/16/23 06:09 Labs: Laboratory Results - last 24 hr 08/15/23 08/16/23 09:59 06:09 MCV 91.8 MCH 31.0 MCHC 33.8 RDW 13.9 Plt Count 208 MPV 10.6 Absolute Nucleated RBC 0.000 Nucleated RBC % (auto) 0.0 PT 32.1 H 37.5 H INR 2.6 H 3.1 H Anion Gap 13 Estim Creat Clear Calc 96.5 Estimated GFR > 60 Fasting Glucose 88 Calcium 8.8 Magnesium 2.0 Total Bilirubin 2.8 H Direct Bilirubin 0.7 H AST 26 ALT 46 H Alkaline Phosphatase 53 Total Protein 6.[address] scan - abdomen: My impression: Periportal edema in motion artifact noted Abdominal ultrasound shows no definitive cholelithiasis HIDA scan is pending MRCP is pending Procedures Date of Service Date of Service: 08/16/23 Progress Note: A&P Assessment and plan (1) Abnormal abdominal CT scan: Status: Acute (2) Elevated liver enzymes: Status: Acute (3) DVT (deep venous thrombosis): Status: Acute (4) Essential hypertension: Status: Acute (5) Atrial fibrillation with RVR: Status: Acute (6) Abdominal pain: Status: Acute (7) CHF exacerbation: Status: Acute (8) Anticoagulated on Coumadin: Status: Acute Plan Continue NPO and IV fluid for now Trend exam and labs, will follow up on HIDA and MRCP when complete. Time Spent With Patient Time: Total time managing care of this patient today ____ minutes. Quality Stroke Does the patient have a stroke diagnosis?: No VTE Prior VTE?: No VTE Risk Level:: Medical - moderate - high VTE Device Contraindication: Treatment Not Indicated VTE Drug Contraindication: N/A - Med Ordered
[2023-08-16 07:46] VITALS: BP 132/96; PULSE 102; RESP 18; TEMP 36.7; O2SAT 91
[2023-08-16] MEDS: Fluticasone Propionate 100 MCG BLST.W.DEV 2 PUFF INHALE (07:47)
[2023-08-16 07:48] VITALS: PULSE 102; RESP 16; O2SAT 91
--- NOTE | 2023-08-16 08:48 | MHC.CM.PN ---
Patient lives in a house in [place] with his /HCP and he uses CPAP at home. Patient is functionally independent and working and home self care is the goal. CM has initiated and will follow for dc planning. PCP is Dr. Sawyer in [place] @ [phone].
[2023-08-16] MEDS: 0.9 % Sodium Chloride Flush 3 ML SYRINGE IVFLUSH (09:51)
[2023-08-16] MEDS: Furosemide 40 MG/4 ML VIAL IVPUSH (09:51)
[2023-08-16] MEDS: Multivitamin TABLET 1 TAB PO (09:52)
[2023-08-16] MEDS: lisinopriL 40 MG TABLET PO (09:52)
[2023-08-16] MEDS: Cholecalciferol (Vitamin D3) 25 MCG TABLET 100 MCG PO (09:52)
[2023-08-16] MEDS: Empagliflozin 25 MG TABLET PO (09:52)
[2023-08-16] MEDS: Amiodarone HCL 200 MG TABLET 400 MG PO (09:52)
--- NOTE | 2023-08-16 10:20 | PM.PNCARD ---
Subjective Subjective Date of Service: 08/16/23 Interval history: He states he is feeling much better. Shortness of breath is significantly improved. Chart reviewed and also discussed with patient. He states he had cardioversion last Wednesday. It seems he did convert to sinus rhythm. Then he was given amiodarone prescription and possibly plan might be to try in a few weeks time after loading. He started this on Wednesday. When he came in, he had atrial fibrillation rapid rate but this is much better controlled at this time. Review of Systems Review of Systems Yes all other systems are reviewed and are negative Constitutional: Reports as per HPI and Reports no additional constitutional complaints Eyes: Reports as per HPI and Denies no additional eye complaints Denies system reviewed and no additional complaints, except as documented and Reports as per HPI Cardiovascular: Reports as per HPI, Reports no additional cardiovascular complaints, Denies acrocyanosis, Denies cool extremities, Denies chest pain, Denies leg edema, Denies lightheadedness, Denies palpitations and Reports dyspnea Respiratory: Reports as per HPI, Denies no additional respiratory complaints and Reports dyspnea Gastrointestinal: Reports as per HPI and Denies no additional gastrointestinal complaints Genitourinary: Reports no additional male genitourinary complaints and Reports as per HPI Musculoskeletal: Reports no additional musculoskeletal complaints and Reports as per HPI Skin/Breast: Reports system reviewed and no additional complaints, except as docu Reports system reviewed and no additional complaints, except as documented and Reports as per HPI Psychiatric: Reports no additional psychiatric complaints and Reports as per HPI Endocrine: Reports no additional endocrine complaints, Reports as per HPI and Denies palpitations Hematologic/Lymphatic: Reports no additional hematologic/lymphatic complaints and Reports as per HPI Allergic/Immunologic: Reports no additional allergic/immunologic complaints and Reports as per HPI Physical Exam Vital Signs: Last Vital Signs Temp 98.1 F 08/16/23 07:46 Pulse 102 H 08/16/23 07:48 Resp 16 08/16/23 07:48 BP 132/96 H 08/16/23 07:46 Pulse Ox 91 L 08/16/23 07:46 O2 Del Method Room Air 08/16/23 07:46 O2 Flow Rate 3 08/15/23 01:26 BMI result Body Mass Index 40.7 Const General: comfortable and no acute distress Orientation/consciousness: patient oriented x3 HEENT Other: Unremarkable Head: Yes normal to inspection Neck Neck: Yes normal visual inspection Chest Chest palpation & inspection: normal inspection of the chest Resp Auscultation: clear to auscultation bilaterally Cardio Palpation: normal PMI Heart sounds: S1 normal heart sound present, S2 normal heart sound present, no gallops, no murmurs and no rubs GI Palpation (GI): Soft to palpation Back/Spine/Pelvis Other: unremarkable Skin General skin exam: no rashes or lesions noted Neuro General: patient oriented x3 Extrem General: Yes normal to inspection Psych Mental Status: mental status grossly normal Objective Labs and Meds 08/16/23 06:09 08/16/23 06:09 Lab results: Laboratory Results - last 24 hr 08/15/23 08/16/23 09:59 06:09 WBC 14.3 H RBC 5.10 Hgb 15.8 Hct 46.8 MCV 91.8 MCH 31.0 MCHC 33.8 RDW 13.9 Plt Count 208 MPV 10.6 Absolute Nucleated RBC 0.000 Nucleated RBC % (auto) 0.0 PT 32.1 H 37.5 H INR 2.6 H 3.1 H Sodium 138 Potassium 3.9 Chloride 100 Carbon Dioxide 29 Anion Gap 13 BUN 12 Creatinine 1.11 Estim Creat Clear Calc 96.5 Estimated GFR > 60 Fasting Glucose 88 Calcium 8.8 Magnesium 2.0 Total Bilirubin 2.8 H Direct Bilirubin 0.7 H AST 26 ALT 46 H Alkaline Phosphatase 53 Total Protein 6.9 Albumin 3.9 Imaging Radiologist's impression: Impressions Hepatobiliary Scan Nuclear Medicine 08/16/23 09:25 IMPRESSION: Normal biliary scan. Visualization of the gallbladder is evidence of a patent cystic duct and strong evidence against the diagnosis of acute cholecystitis. The common bile duct is patent. Liver function appears normal. Progress Note: A&P Assessment and plan (1) Acute CHF: Status: Acute Assessment and Plan: Much improved on diuretics. Based on input/output charting, he is -7.7 L. clinically, not much volume overload. Guideline based medical therapy as an outpatient but these meds will need to be started in his hometown as he is leaving today. (2) Atrial fibrillation with RVR: Status: Acute Assessment and Plan: When he came in, he had rapid rate but currently telemetry shows a ventricular rate of about 100/Min. Per patient, amiodarone load started on Wednesday. He is also on beta-blockers. We can up titrate the dose of beta-blockers. After 2-3 weeks of loading, potentially another cardioversion through his own primary supervisor post wave. He is also on cardioversion. Plan Patient has a flight back home today evening and would like to keep that plan as much able. Will try to get an echo before discharge. Discussed with . Time Spent With Patient Time: Total time managing care of this patient today ____ minutes. Progress Note: Quality Stroke Does the patient have a stroke diagnosis?: No Procedures Date of Service Date of Service: 08/16/23
--- NOTE | 2023-08-16 10:23 | MHC.CM.PN ---
Patient has been medically cleared for dc to home today, self care.
--- NOTE | 2023-08-16 10:29 | P.DS_ITS ---
DS: Providers Provider Date of Service: 08/16/23 Date of admission: 08/14/23 22:21 Primary care physician: Unknown Physician Consults: 08/14/23 23:02 Consult to Cardiology Routine Consulting Provider: [facility] [place] [facility] Reason for consultation: afib with rvr Has provider been notified: Yes 08/15/23 00:11 Consult to General Surgery Routine Consulting Provider: [facility] [place] [facility] Reason for consultation: ?cholecystitis DS: Diagnosis Discharge Diagnosis (1) Acute CHF: Status: Acute (2) Atrial fibrillation with RVR: Status: Acute DS: Summary Hospital Course Hospital Course: from initial hpi: 58-year-old male with 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 Patient states he is from [place] and underwent cardioversion on Wednesday. It was unsuccessful and patient was initiated on amiodarone. Patient states he only took 2 pills as it made him constipated. He is visiting his sister in [facility]. Patient does report progressive dyspnea, worse with exertion. Also complains of orthopnea. Does have bilateral lower extremity looks swelling and abdominal wall swelling. He states he does have abdominal discomfort, right-sided, nonradiating. No fever, chills, nausea, vomiting. No palpitations or changes in urinary or bowel habits. In the emergency department, patient with pulmonary edema and BNP was found to be elevated. Also requiring supplemental oxygen and found to be in AFib with RVR. Abdominal imaging with diffuse gallbladder wall thickening, positive Sargent signs and dilated CBD with elevated liver enzymes hospital course: Patient was admitted for acute hypoxic respiratory failure secondary to acute on chronic systolic CHF. He was treated with IV Lasix and wean down to room air. He will continue on p.o. Lasix on discharge. Echo was done and showed EF 25- 30%, should be followed up with cardiology outpatient. For persistent atrial fibrillation with rapid ventricular response he was started back on amiodarone, metoprolol was increased to 50 mg b.i.d.. He was continued on Coumadin. On admission was noted to have gallbladder edema with elevated liver enzymes, HIDA was negative, most likely this was hepatic congestion from CHF, improved with IV diuresis, for SOUMYA was continue with CPAP. For morbid obesity weight loss is recommended. For history of DVT he was continued on Coumadin. For hyperlipidemia was continue on statin. Time Attestation Discharge coordination time: Greater than 30 minutes Quality: Safe Use of Opioids Does Pt have an Active Cancer Diagnosis on the Problem List?: No Quality: Stroke Does the patient have a stroke diagnosis?: No Physical Exam Vital Signs: Vital Signs: Last Vital Signs Temp 98.1 F 08/16/23 07:46 Pulse 102 H 08/16/23 07:48 Resp 16 08/16/23 07:48 BP 132/96 H 08/16/23 07:46 Pulse Ox 91 L 08/16/23 07:46 O2 Del Method Room Air 08/16/23 07:46 O2 Flow Rate 3 08/15/23 01:26 BMI result Body Mass Index 40.7 Const: General: comfortable and no acute distress Orientation/consciousness: patient oriented x3 HEENT: Other: Unremarkable Head: Yes normal to inspection Neck: Neck: Yes normal visual inspection Chest: Chest palpation & inspection: normal inspection of the chest Resp: Auscultation: clear to auscultation bilaterally Cardio: Palpation: normal PMI Heart sounds: S1 normal heart sound present, S2 normal heart sound present, no gallops, no murmurs and no rubs GI: Palpation (GI): Soft to palpation Back/Spine/Pelvis: Other: unremarkable Skin: General skin exam: no rashes or lesions noted Neuro: General: patient oriented x3 Extrem: General: Yes normal to inspection Psych: Mental Status: mental status grossly normal DS: Data Data Completed and Pending Labs on day of discharge: Laboratory Results - last 24 hr 08/16/23 06:09 WBC 14.3 H RBC 5.10 Hgb 15.8 Hct 46.8 MCV 91.8 MCH 31.0 MCHC 33.8 RDW 13.9 Plt Count 208 MPV 10.6 Absolute Nucleated RBC 0.000 Nucleated RBC % (auto) 0.0 PT 37.5 H INR 3.1 H Sodium 138 Potassium 3.9 Chloride 100 Carbon Dioxide 29 Anion Gap 13 BUN 12 Creatinine 1.11 Estim Creat Clear Calc 96.5 Estimated GFR > 60 Fasting Glucose 88 Calcium 8.8 Magnesium 2.0 Total Bilirubin 2.8 H Direct Bilirubin 0.7 H AST 26 ALT 46 H Alkaline Phosphatase 53 Total Protein 6.9 Albumin 3.9 Discharge Plan Discharge Anticipated Discharge Date/Time: 08/16/23 10:18 Patient Disposition: Home, Self-Care Discharge Diagnosis: afib, chf Referrals: Physician,Unknown J [Primary Care Provider] - 1 Week Discharge Medications: New Jardiance 25 mg Tablet 25 mg PO DAILY Qty: 30 0RF furosemide 40 mg tablet 40 mg PO DAILY Qty: 30 0RF metoprolol tartrate 50 mg tablet 50 mg PO BID Qty: 60 0RF Continued atorvastatin 10 mg tablet 10 mg PO QPM warfarin 4 mg tablet 4 mg PO QPM amiodarone 400 mg tablet 400 mg PO TID Patient Comments: instructed to take x 1 wk pantoprazole 40 mg tablet,delayed release (DR/EC) 40 mg PO DAILY fluticasone propionate 110 mcg/actuation HFA aerosol inhaler 2 puff inhalation BID ramipril 10 mg capsule 20 mg PO DAILY multivitamin Tablet 1 tab PO DAILY calcium carbonate [Calcium 500] 500 mg calcium (1,250 mg) Tablet,Chewable 500 mg PO DAILY ascorbic acid (vitamin C) 100 mg Tablet,Chewable 500 mg PO DAILY coenzyme Q10 [Co Q-10] 100 mg Capsule 100 mg PO DAILY cholecalciferol (vitamin D3) [Vitamin D3] 50 mcg (2,000 unit) Capsule 100 mcg PO DAILY Glucosamine Chondroitin 550-30-1 mg Capsule 1 cap PO DAILY Discontinued metoprolol succinate 50 mg tablet extended release 24 hr 75 mg PO BEDTIME Discharge Orders: Discharge Order (Routine); Ordered 08/16/23 Ordered By: Milton Bob Diet: Advance to usual diet Activity on Discharge: As tolerated Stand Alone Forms: Patient Portal Discharge page Care Plan Goals: recovery Health Concerns: afib ,chf Plan of Treatment: increase metoprolol, start lasix, follow up with doctors in [place] Assessment: see above
[2023-08-16 11:44] VITALS: BP 94/67; PULSE 82; RESP 18; TEMP 36.1; O2SAT 95
== END 2023-08-16 13:24 | disposition home or self-care (01) | DRG 194 ==
LOC: HO.ED 17:47 → HO.EDOVER 22:55 → HO.IMC 08-15 13:49
PROVIDERS: Admitting Provider Student in an Organized Health Care Education/Training Program; Emergency Provider Student in an Organized Health Care Education/Training Program; Visit Provider Internal Medicine
DX: I50.23 Acute on chronic systolic (congestive) heart failure (principal); J96.01 Acute respiratory failure with hypoxia; I48.19 Other persistent atrial fibrillation; E78.2 Mixed hyperlipidemia; E66.01 Morbid (severe) obesity due to excess calories; Z68.41 Body mass index [BMI] 40.0-44.9, adult; G47.33 Obstructive sleep apnea (adult) (pediatric); I50.813 Acute on chronic right heart failure; Z20.822 Contact with and (suspected) exposure to COVID-19; Z86.718 Personal history of other venous thrombosis and embolism; Z79.01 Long term (current) use of anticoagulants; Z91.148 Patient's other noncompliance with medication regimen for other reason; Z71.3 Dietary counseling and surveillance; Z79.51 Long term (current) use of inhaled steroids; Z79.899 Other long term (current) drug therapy
CPT/HCPCS: 36415; 71045; 74177; 76705; 78226; 80048; 80076; 81003; 83690; 83735; 83880; 84443; 84484; 85025; 85027; 85610; 85730; 87502; 87635; 93005; 93306; 99285; A9537; J0696; J1160; J1940; J2543; Q9957; Q9967

== ENCOUNTER 2023-08-14 22:21 | Outpatient (BNV) | payer BC, SELFPAY | END 2023-08-16 07:00 | PROVIDERS: Admitting Provider Student in an Organized Health Care Education/Training Program; Emergency Provider Student in an Organized Health Care Education/Training Program; Visit Provider Internal Medicine | DX: I48.91 Unspecified atrial fibrillation (principal) | CPT/HCPCS: 93306 ==

== ENCOUNTER → 2023-08-14 22:21 | Outpatient (BNV) | payer BC, SELFPAY | PROVIDERS: Admitting Provider Student in an Organized Health Care Education/Training Program; Emergency Provider Student in an Organized Health Care Education/Training Program; Visit Provider Student in an Organized Health Care Education/Training Program | DX: I50.9 Heart failure, unspecified (principal); I48.91 Unspecified atrial fibrillation | CPT/HCPCS: 99223; 99233; 99239 ==

== ENCOUNTER → 2023-08-14 22:21 | Outpatient (BNV) | payer BC, SELFPAY | PROVIDERS: Admitting Provider Student in an Organized Health Care Education/Training Program; Emergency Provider Student in an Organized Health Care Education/Training Program; Visit Provider Surgery | DX: I82.409 Acute embolism and thrombosis of unspecified deep veins of unspecified lower extremity (principal); R93.5 Abnormal findings on diagnostic imaging of other abdominal regions, including retroperitoneum; I50.9 Heart failure, unspecified; I48.91 Unspecified atrial fibrillation; R10.9 Unspecified abdominal pain; I10 Essential (primary) hypertension; R74.8 Abnormal levels of other serum enzymes; Z79.01 Long term (current) use of anticoagulants | CPT/HCPCS: 99222; 99232 ==

== ENCOUNTER → 2023-08-14 22:21 | Outpatient (BNV) | payer BC, SELFPAY | PROVIDERS: Admitting Provider Student in an Organized Health Care Education/Training Program; Emergency Provider Student in an Organized Health Care Education/Training Program; Visit Provider Internal Medicine Cardiovascular Disease | DX: I50.9 Heart failure, unspecified (principal); I48.91 Unspecified atrial fibrillation | CPT/HCPCS: 99222; 99233 ==